=== PATIENT | male | born 1960 | race Caucasian/White ===

== ENCOUNTER 2017-04-28 21:49 | Emergency (ER) | payer SELFPAY ==
[2017-04-28] MEDS ORDERED: DUONEB *Not for PRN Use IH ONE (22:13)
[2017-04-28 22:42] LABS: Basophils % (Auto) 0.7 % (0.0-1.8); Eosinophils % (Auto) 1.9 % (0.0-4.3); Hematocrit 37.9 % (35.5-45.6); Mean Corpuscular HGB Conc 34 % (32-34); Mean Corpuscular Hemoglobin 34 pg (28-32); Mean Corpuscular Volume 100 fl (84-94); Red Blood Count 3.79 M/mm3 (3.65-5.03); Red Cell Distribution Width 13.6 % (13.2-15.2); White Blood Count 4.5 K/mm3 (4.5-11.0)
[2017-04-28 22:52] LABS: INR 1.29 (0.87-1.13); Partial Thromboplastin Time 30.9 Sec. (24.2-36.6)
[2017-04-28 22:53] LABS: Anion Gap 18 mmol/L; Blood Urea Nitrogen 14 mg/dL (9-20); Calcium 8.5 mg/dL (8.4-10.2); Carbon Dioxide 24 mmol/L (22-30); Chloride 104.9 mmol/L (98-107); Glucose 195 mg/dL (75-100); Potassium 3.8 mmol/L (3.6-5.0); Sodium 143 mmol/L (137-145)
[2017-04-28 23:09] LABS: Platelet Count 90 K/mm3 (140-440)
[2017-04-29] MEDS ORDERED: BABY ASPIRIN PO ONE (06:49)
--- NOTE | 2017-04-29 06:49 | Emergency Department Report ---
ED Chest Pain HPI - General Chief Complaint: Chest Pain Stated Complaint: CP Time Seen by Provider: 04/29/17 06:41 Source: patient Mode of arrival: Ambulatory Limitations: No Limitations - History of Present Illness Initial Comments: Patient is a 57 past medical history of asthma who presents with chest tightness that occurred yesterday. Patient states that the chest pain is located in the middle of his chest breathing makes it worse and nothing makes it better. Patient states that he's uses inhaler and has been wheezing. The pain is a 5 out 10 as a sharp type pain. It is intermittent he states that he may have had a history of SC? However reviewing his old records he was seen here last year and he denied having any history of heart attack. Patient does not take a daily aspirin or any Plavix. 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 Patient's stress test last year was negative. Patient denies having any nausea or vomiting. Severity scale (0 -10): 3 - Related Data Previous Rx's Medication Instructions Recorded Last Taken Type ALBUTEROL Inhaler [ProAir HFA 2 puff IH QID PRN #1 inhalation 04/29/17 Unknown Rx Inhaler] predniSONE [Deltasone] 20 mg PO BID #10 tablet 04/29/17 Unknown Rx Allergies Allergy/AdvReac Type Severity Reaction Status Date / Time No Known Allergies Allergy Verified 04/28/17 22:06 Heart Score - HEART Score History: Slightly suspicious EKG: Non-specific Age: 45-65 Risk factors: 1-2 risk factors Troponin: < normal limit HEART Score: 3 ED Review of Systems ROS: Stated complaint: CP Other details as noted in HPI Constitutional: denies: chills, fever Eyes: denies: eye pain, eye discharge, vision change ENT: denies: ear pain, throat pain Respiratory: shortness of breath. denies: cough, wheezing Cardiovascular: chest pain. denies: palpitations Endocrine: no symptoms reported Gastrointestinal: denies: abdominal pain, nausea, diarrhea Genitourinary: denies: urgency, dysuria Musculoskeletal: denies: back pain, joint swelling, arthralgia Skin: denies: rash, lesions Neurological: denies: headache, weakness, paresthesias Psychiatric: denies: anxiety, depression Hematological/Lymphatic: denies: easy bleeding, easy bruising ED Past Medical Hx - Past Medical History Previous Medical History?: Yes Hx Heart Attack/AMI: Yes - Surgical History Past Surgical History?: No - Social History Smoking Status: Never Smoker Substance Use Type: Alcohol - Medications Home Medications: Home Medications Medication Instructions Recorded Confirmed Last Taken Type ALBUTEROL Inhaler [ProAir HFA 2 puff IH QID PRN #1 inhalation 04/29/17 Unknown Rx Inhaler] predniSONE [Deltasone] 20 mg PO BID #10 tablet 04/29/17 Unknown Rx ED Physical Exam - General Limitations: No Limitations General appearance: alert, in no apparent distress - Head Head exam: Present: atraumatic, normocephalic - Eye Eye exam: Present: normal appearance - ENT ENT exam: Present: mucous membranes moist - Neck Neck exam: Present: normal inspection - Respiratory Respiratory exam: Present: wheezes. Absent: respiratory distress - Cardiovascular Cardiovascular Exam: Present: regular rate, normal rhythm. Absent: systolic murmur, diastolic murmur, rubs, gallop - GI/Abdominal GI/Abdominal exam: Present: soft, normal bowel sounds - Rectal Rectal exam: Present: deferred - Extremities Exam Extremities exam: Present: normal inspection - Back Exam Back exam: Present: normal inspection - Neurological Exam Neurological exam: Present: alert, oriented X3 - Psychiatric Psychiatric exam: Present: normal affect, normal mood - Skin Skin exam: Present: warm, dry, intact, normal color. Absent: rash ED Course Vital Signs 04/28/17 04/28/17 04/28/17 21:59 22:00 22:06 Temperature 98.1 F 98.1 F Pulse Rate 95 H 94 H 94 H Pulse Rate [ Anterior] Respiratory 20 20 Rate Respiratory Rate [Anterior] Blood Pressure 145/85 145/85 Blood Pressure 145/85 [Right] O2 Sat by Pulse 97 96 96 Oximetry 04/28/17 04/28/17 04/29/17 22:50 23:05 06:12 Temperature Pulse Rate Pulse Rate [ 78 80 Anterior] Respiratory 18 Rate Respiratory 22 23 Rate [Anterior] Blood Pressure Blood Pressure [Right] O2 Sat by Pulse 99 Oximetry 04/29/17 04/29/17 04/29/17 06:37 06:45 07:00 Temperature Pulse Rate 76 70 Pulse Rate [ Anterior] Respiratory 17 17 17 Rate Respiratory Rate [Anterior] Blood Pressure 163/91 155/91 Blood Pressure [Right] O2 Sat by Pulse 100 99 Oximetry 04/29/17 04/29/17 04/29/17 07:15 07:30 07:45 Temperature Pulse Rate 72 74 77 Pulse Rate [ Anterior] Respiratory 17 16 16 Rate Respiratory Rate [Anterior] Blood Pressure 155/91 143/88 143/88 Blood Pressure [Right] O2 Sat by Pulse 99 100 99 Oximetry 04/29/17 04/29/17 04/29/17 08:00 08:15 08:22 Temperature 98.4 F Pulse Rate 77 76 Pulse Rate [ Anterior] Respiratory 16 17 Rate Respiratory Rate [Anterior] Blood Pressure 131/66 131/66 Blood Pressure [Right] O2 Sat by Pulse 99 99 Oximetry - Reevaluation(s) Reevaluation #1: 04/29/17 09:15 Patient has had 3 negative troponins and unremarkable EKG patient will be sent home. LOIDA score - Loida Score Age > 65: (0) No Aspirin use within the Past 7 Days: (0) No 3 or more CAD Risk Factors: (0) No 2 or more Angina events in past 24 hrs: (0) No Known CAD with more than 50% Stenosis: (0) No Elevated Cardiac Markers: (0) No ST Deviation Greater than 0.5mm: (0) No LOIDA Score: 0 ED Medical Decision Making - Lab Data Result diagrams: 04/28/17 22:17 04/28/17 22:17 Lab Results 04/28/17 04/28/17 04/28/17 Range/Units 22:17 22:17 22:17 WBC 4.5 (4.5-11.0) K/mm3 RBC 3.79 (3.65-5.03) M/mm3 Hgb 13.0 (11.8-15.2) gm/dl Hct 37.9 (35.5-45.6) % MCV 100 H (84-94) fl MCH 34 H (28-32) pg MCHC 34 (32-34) % RDW 13.6 (13.2-15.2) % Plt Count 90 L (140-440) K/mm3 Lymph % (Auto) 38.1 H (13.4-35.0) % Rhea % (Auto) 7.6 H (0.0-7.3) % Eos % (Auto) 1.9 (0.0-4.3) % Baso % (Auto) 0.7 (0.0-1.8) % Lymph # 1.7 (1.2-5.4) K/mm3 Rhea # 0.3 (0.0-0.8) K/mm3 Eos # 0.1 (0.0-0.4) K/mm3 Baso # 0.0 (0.0-0.1) K/mm3 Seg Neutrophils % 51.7 (40.0-70.0) % Seg Neutrophils # 2.3 (1.8-7.7) K/mm3 PT 16.8 H (12.2-14.9) Sec. INR 1.29 H (0.87-1.13) APTT 30.9 (24.2-36.6) Sec. Sodium 143 (137-145) mmol/L Potassium 3.8 (3.6-5.0) mmol/L Chloride 104.9 (98-107) mmol/L Carbon Dioxide 24 (22-30) mmol/L Anion Gap 18 mmol/L BUN 14 (9-20) mg/dL Creatinine 0.8 (0.8-1.5) mg/dL Estimated GFR > 60 ml/min BUN/Creatinine Ratio 17.50 % Glucose 195 H (75-100) mg/dL Calcium 8.5 (8.4-10.2) mg/dL Troponin T < 0.010 (0.00-0.029) ng/mL 04/29/17 04/29/17 Range/Units 01:03 04:39 WBC (4.5-11.0) K/mm3 RBC (3.65-5.03) M/mm3 Hgb (11.8-15.2) gm/dl Hct (35.5-45.6) % MCV (84-94) fl MCH (28-32) pg MCHC (32-34) % RDW (13.2-15.2) % Plt Count (140-440) K/mm3 Lymph % (Auto) (13.4-35.0) % Rhea % (Auto) (0.0-7.3) % Eos % (Auto) (0.0-4.3) % Baso % (Auto) (0.0-1.8) % Lymph # (1.2-5.4) K/mm3 Rhea # (0.0-0.8) K/mm3 Eos # (0.0-0.4) K/mm3 Baso # (0.0-0.1) K/mm3 Seg Neutrophils % (40.0-70.0) % Seg Neutrophils # (1.8-7.7) K/mm3 PT (12.2-14.9) Sec. INR (0.87-1.13) APTT (24.2-36.6) Sec. Sodium (137-145) mmol/L Potassium (3.6-5.0) mmol/L Chloride (98-107) mmol/L Carbon Dioxide (22-30) mmol/L Anion Gap mmol/L BUN (9-20) mg/dL Creatinine (0.8-1.5) mg/dL Estimated GFR ml/min BUN/Creatinine Ratio % Glucose (75-100) mg/dL Calcium (8.4-10.2) mg/dL Troponin T < 0.010 < 0.010 (0.00-0.029) ng/mL - EKG Data -: EKG Interpreted by Me - EKG Data 04/29/17 09:25 EKG shows sinus rhythm normal axis posterior infarct and minimal. Compared with prior EKG. No new changes or ST segment elevation. - Radiology Data Radiology results: report reviewed, image reviewed Chest x-ray: Shows no cardiopulmonary disease - Medical Decision Making Chief medical diagnosis: Asthma exacerbation Differential medical diagnosis: Pneumonia, non-STEMI, costochondritis I will get CBC, CMP, EKG, troponin, chest x-ray, oral pain medication. Patient has 3 negative troponins and chest x-rays unremarkable I will send the patient home and have the patient follow-up with a PCP and I will send patient with prednisone and albuterol inhaler. Additional verbal discharge instructions were given. Patient agrees with plan for discharge. Critical care attestation.: If time is entered above; I have spent that time in minutes in the direct care of this critically ill patient, excluding procedure time. ED Disposition Clinical Impression: Shortness of breath, Asthma exacerbation Chest pain Qualifiers: Chest pain type: other chest pain Qualified Code(s): R07.89 - Other chest pain Disposition: TO HOME OR SELFCARE Is pt being admited?: No Does the pt Need Aspirin: No Condition: Stable Instructions: Chest Pain (ED), Asthma (ED) Prescriptions: ALBUTEROL Inhaler [ProAir HFA Inhaler] 2 puff IH QID PRN #1 inhalation PRN Reason: Shortness Of Breath predniSONE [Deltasone] 20 mg PO BID #10 tablet Referrals: PRIMARY CARE, [Primary Care Provider] - 3-5 Days VASU DAVIDSON MD [Staff Physician] - 3-5 Days
--- NOTE | 2017-04-29 07:48 | XRay Report ---
ROUTINE CHEST, TWO VIEWS: HISTORY: Cough, chest pain. The trachea, heart, mediastinal contour, lung nolasco and bony thorax are unremarkable. IMPRESSION: Unremarkable chest x-ray.
[2017-04-29 08:22] VITALS: BP 131/66
[2017-04-29] MEDS ORDERED: DELTASONE PO ONE (09:32)
== END 2017-04-29 09:53 | disposition home or self-care (01) ==
LOC: ED 21:49
DX: J45.901 Unspecified asthma with (acute) exacerbation (principal); R07.89 Other chest pain; I25.2 Old myocardial infarction
CPT/HCPCS: 36415; 71020; 80048; 84484; 85025; 85610; 85730; 93005; 93010; 94640; 99284; J7512

== ENCOUNTER 2019-08-10 07:57 | Emergency (ER) | payer SELFPAY ==
[2019-08-10] MEDS ORDERED: IPRATROPIUM/ALBUTEROL SULFATE 3 ML AMPUL.NEB IH ONE ×2 (08:16→08:17)
--- NOTE | 2019-08-10 09:14 | XRay Report ---
CHEST 2 VIEWS INDICATION / CLINICAL INFORMATION: SOB, cough, wheeze, hx asthma. COMPARISON: 08/11/2018 FINDINGS: SUPPORT DEVICES: None. HEART / MEDIASTINUM: No significant abnormality. LUNGS / PLEURA: No significant pulmonary or pleural abnormality. No pneumothorax. ADDITIONAL FINDINGS: No significant additional findings. IMPRESSION: 1. No acute findings. Signer Name: Jeevan Interiano MD Signed: 08/10/2019 9:09 AM Workstation Name: [id number]
[2019-08-10] MEDS ORDERED: DEXAMETHASONE 4 MG TAB PO ONE (10:53)
[2019-08-10] MEDS ORDERED: ALBUTEROL 2.5 MG/3 ML NEBU IH ONE ×2 (10:53→12:10)
--- NOTE | 2019-08-10 10:55 | Emergency Department Report ---
Minor Respiratory - HPI Chief Complaint: Adult Asthma Stated Complaint: ASTHMA Time Seen by Provider: 08/10/19 10:20 Duration: 1 Day Minor Respiratory: Yes Able to Tolerate Fluids, Yes Cough, Yes Shortness of Breath, No Rhinorrhea, No Sore Throat, No Ear Pain, No Sick Contacts, No Hemoptysis, No Chest Pain, No Fever Other History: 59-year-old male presents to the emergency room compla ining of asthma and cough since yesterday. Patient admits to wheezing and has ran out of his medication. Patient also admits to cough denies any fever or chills abdominal pain shortness of breath chest pain or chest tightness. Patient does not smoke cigarettes. ED Review of Systems ROS: Stated complaint: ASTHMA Other details as noted in HPI Comment: All other systems reviewed and negative ED Past Medical Hx - Past Medical History Previous Medical History?: Yes Hx Hypertension: Yes (pt does not want to take bp meds) Hx Heart Attack/AMI: Yes Hx Congestive Heart Failure: No Hx Diabetes: No Hx Deep Vein Thrombosis: No Hx Kidney Stones: Yes Hx Asthma: Yes Hx COPD: No - Surgical History Past Surgical History?: No Hx Coronary Stent: No Hx Pacemaker: No Hx Internal Defibrillator: No - Social History Smoking Status: Never Smoker - Medications Home Medications: Home Medications Medication Instructions Recorded Confirmed Last Taken Type Multivitamin [Multiple Vitamins] 1 each PO DAILY 08/11/18 08/11/18 Unknown History Budesonide [Pulmicort Respules] 0.5 mg IH Q12HRT #60 nebu 08/15/18 Unknown Rx Nebulizer [Aeroneb Go Nebulizer] 1 each MC BID #1 each 08/15/18 Unknown Rx amLODIPine 10 mg PO DAILY #30 tab 08/15/18 Unknown Rx ALBUTEROL NEB's [Proventil 0.083% 2.5 mg IH Q4HRT PRN #60 nebu 08/10/19 Unknown Rx NEBS] Prednisone [predniSONE 10 mg 10 mg PO .TAPER #1 tab.ds.pk 08/10/19 Unknown Rx (6-Day Pack, 21 Tabs)] Minor Respiratory Exam - Exam General: Vital signs noted. No distress. Alert and acting appropriately. HEENT: Yes Moist Mucous Membranes, No Pharyngeal Erythema, No Pharyngeal Exudates, No Rhinorrhea, No Conjuctival Injection, No Frontal Tenderness, No Maxillary Tenderness Neck: Yes Supple, No Adenopathy Lungs: Yes Wheezes, Yes Ronchi, Yes Cough, No Labored Respirations, No Retractions, No Use of Accessory Muscles, No Other Abnormal Lung Sounds Neurologic: Alert and oriented, no deficits. Musculoskeletal: Unremarkable. ED Course Vital Signs 08/10/19 08:18 Temperature 97.9 F Pulse Rate 81 Respiratory 24 Rate Blood Pressure 155/93 [Right] O2 Sat by Pulse 93 Oximetry ED Medical Decision Making - Radiology Data Radiology results: report reviewed Patient: GLADYS ROMAN MR#: [id number] : 1960 Acct:[id number] Age/Sex: 59 / M ADM Date: 08/10/19 Loc: ED Attending Dr: Ordering Physician: TOLU PALOMINO MD Date of Service: 08/10/19 Procedure(s): XR chest routine 2V Accession Number(s): [id number] cc: ED MD GEORGETTE Fluoro Time In Minutes: CHEST 2 VIEWS INDICATION / CLINICAL INFORMATION: SOB, cough, wheeze, hx asthma. COMPARISON: 08/11/2018 FINDINGS: SUPPORT DEVICES: None. HEART / MEDIASTINUM: No significant abnormality. LUNGS / PLEURA: No significant pulmonary or pleural abnormality. No pneumothorax. ADDITIONAL FINDINGS: No significant additional findings. IMPRESSION: 1. No acute findings. Signer Name: Jeevan Interiano MD Signed: 08/10/2019 9:09 AM Workstation Name: [id number] Transcribed By: MEDINA Dictated By: Jeevan Interiano MD Electronically Authenticated By: Jeevan Interiano MD Signed Date/Time: 08/10/19908 DD/ 7 TD/TT: - Medical Decision Making 59-year-old male presents to the emergency room complaining of asthma and cough since yesterday. Patient admits to wheezing and has ran out of his medication. Patient also admits to cough denies any fever or chills abdominal pain shortness of breath chest pain or chest tightness. Patient does not smoke cigarettes. Critical care attestation.: If time is entered above; I have spent that time in minutes in the direct care of this critically ill patient, excluding procedure time. ED Disposition Clinical Impression: Asthma with acute exacerbation Disposition: DC-01 TO HOME OR SELFCARE Is pt being admited?: No Does the pt Need Aspirin: No Condition: Stable Instructions: Asthma (ED) Prescriptions: Prednisone [predniSONE 10 mg (6-Day Pack, 21 Tabs)] 10 mg PO .TAPER #1 tab.ds.pk ALBUTEROL NEB's [Proventil 0.083% NEBS] 2.5 mg IH Q4HRT PRN #60 nebu PRN Reason: Shortness Of Breath Referrals: PRIMARY CARE, [Primary Care Provider] - 3-5 Days GRAY ALARCON MD [Staff Physician] - 3-5 Days AYALA MILLAN MD [Staff Physician] - 3-5 Days
[2019-08-10] MEDS ORDERED: IPRATROPIUM 0.02% NEBU 2.5 ML IH ONE (12:10)
[2019-08-10 13:19] VITALS: BP 164/84
== END 2019-08-10 13:17 | disposition home or self-care (01) ==
LOC: ED 07:57
DX: J45.901 Unspecified asthma with (acute) exacerbation (principal); I10 Essential (primary) hypertension; I25.2 Old myocardial infarction; Z87.442 Personal history of urinary calculi; Z79.899 Other long term (current) drug therapy
CPT/HCPCS: 71046; 94640; 99284; J8540; 94644

== ENCOUNTER 2020-08-18 03:54 | Inpatient (IN) | payer OTHER ==
[2020-08-18] MEDS ORDERED: ALBUTEROL 2.5 MG/3 ML NEBU IH ONE ×2 (03:55→04:06)
[2020-08-18] MEDS ORDERED: IPRATROPIUM 0.02% NEBU 2.5 ML IH ONE ×2 (03:55→04:06)
[2020-08-18] MEDS ORDERED: MAGNESIUM SULFATE 2 GM/50 ML BAG IV ONE (03:58)
--- NOTE | 2020-08-18 04:00 | Emergency Department Report ---
ED Asthma HPI - General Chief Complaint: Dyspnea/Respdistress Stated Complaint: ASTHMA PUI?: No Time Seen by Provider: 08/18/20 03:57 Source: patient, EMS Mode of arrival: Stretcher Limitations: No Limitations - History of Present Illness Initial Comments: Patient is a 60-year-old male that presents emergency room with complaints of shortness of breath and asthmatic sounds. Patient states that he ran out of his meds 2 days ago. Patient says been going on for 2 days. Patient denies symptoms worsen. Patient states he cannot catch his breath. Patient denies chest pain. Patient denies fever and chills. Patient denies productive cough. Patient denies recent contact with Covid. Patient states shortness breath better with rest and worse with exertion. Patient denies recent travel. Patient denies recent international travel. Patient denies exposure to the novel coronavirus. Patient denies sick contacts. Patient denies fever and chills. Patient denies cough. Patient denies diarrhea. Patient denies coming in contact with anybody with symptoms of the novel coronavirus. Patient brought in by EMS. EMS gave the patient Solu-Medrol 125 IM and 10 of albuterol. MD Complaint: "asthma attack", shortness of breath -: Sudden Asthma History: childhood onset Severity: severe Context: ran out of meds Associated Symptoms: dry cough. denies: productive cough, fever, chest pain, hemoptysis, leg edema, syncope Treatments Prior to Arrival: inhaled bronchodilator, IV steroid - Related Data Current Asthma Therapy: inhaled bronchodilator Home Medications Medication Instructions Recorded Confirmed Last Taken Multivitamin [Multiple Vitamins] 1 each PO DAILY 08/11/18 08/11/18 Unknown Previous Rx's Medication Instructions Recorded Last Taken Type Budesonide [Pulmicort Respules] 0.5 mg IH Q12HRT #60 nebu 08/15/18 Unknown Rx Nebulizer [Aeroneb Go Nebulizer] 1 each MC BID #1 each 08/15/18 Unknown Rx amLODIPine 10 mg PO DAILY #30 tab 08/15/18 Unknown Rx ALBUTEROL NEB's [Proventil 0.083% 2.5 mg IH Q4HRT PRN #60 nebu 08/10/19 Unknown Rx NEBS] Prednisone [predniSONE 10 mg 10 mg PO .TAPER #1 tab.ds.pk 08/10/19 Unknown Rx (6-Day Pack, 21 Tabs)] Allergies Allergy/AdvReac Type Severity Reaction Status Date / Time No Known Allergies Allergy Verified 04/28/17 22:06 ED Review of Systems ROS: Stated complaint: ASTHMA Other details as noted in HPI Constitutional: denies: chills, fever Eyes: denies: eye pain, eye discharge, vision change ENT: denies: ear pain, throat pain Respiratory: denies: cough, shortness of breath, wheezing Cardiovascular: denies: chest pain, palpitations Endocrine: no symptoms reported Gastrointestinal: denies: abdominal pain, nausea, diarrhea Genitourinary: denies: urgency, dysuria Musculoskeletal: denies: back pain, joint swelling, arthralgia Skin: denies: rash, lesions Neurological: denies: headache, weakness, paresthesias Psychiatric: denies: anxiety, depression Hematological/Lymphatic: denies: easy bleeding, easy bruising ED Past Medical Hx - Past Medical History Previous Medical History?: Yes Hx Hypertension: Yes (pt does not want to take bp meds) Hx Heart Attack/AMI: Yes Hx Congestive Heart Failure: No Hx Diabetes: No Hx Deep Vein Thrombosis: No Hx Kidney Stones: Yes Hx Asthma: Yes Hx COPD: No - Surgical History Past Surgical History?: No Hx Coronary Stent: No Hx Pacemaker: No Hx Internal Defibrillator: No - Family History Family history: no significant - Social History Smoking Status: Never Smoker Substance Use Type: None - Medications Home Medications: Home Medications Medication Instructions Recorded Confirmed Last Taken Type Multivitamin [Multiple Vitamins] 1 each PO DAILY 08/11/18 08/11/18 Unknown History Budesonide [Pulmicort Respules] 0.5 mg IH Q12HRT #60 nebu 08/15/18 Unknown Rx Nebulizer [Aeroneb Go Nebulizer] 1 each MC BID #1 each 08/15/18 Unknown Rx amLODIPine 10 mg PO DAILY #30 tab 08/15/18 Unknown Rx ALBUTEROL NEB's [Proventil 0.083% 2.5 mg IH Q4HRT PRN #60 nebu 08/10/19 Unknown Rx NEBS] Prednisone [predniSONE 10 mg 10 mg PO .TAPER #1 tab.ds.pk 08/10/19 Unknown Rx (6-Day Pack, 21 Tabs)] ED Physical Exam - General Limitations: No Limitations General appearance: alert, in no apparent distress - Head Head exam: Present: atraumatic, normocephalic - Eye Eye exam: Present: normal appearance - ENT ENT exam: Present: mucous membranes moist - Neck Neck exam: Present: normal inspection - Respiratory Respiratory exam: Present: normal lung sounds bilaterally. Absent: respiratory distress - Cardiovascular Cardiovascular Exam: Present: regular rate, normal rhythm. Absent: systolic murmur, diastolic murmur, rubs, gallop - GI/Abdominal GI/Abdominal exam: Present: soft, normal bowel sounds - Rectal Rectal exam: Present: deferred - Extremities Exam Extremities exam: Present: normal inspection - Back Exam Back exam: Present: normal inspection - Neurological Exam Neurological exam: Present: alert, oriented X3 - Psychiatric Psychiatric exam: Present: normal affect, normal mood - Skin Skin exam: Present: warm, dry, intact, normal color. Absent: rash ED Course Vital Signs 08/18/20 08/18/20 04:08 05:11 Pulse Rate 102 H Pulse Rate [ 98 H Bilateral] Respiratory 15 Rate Respiratory 14 Rate [Bilateral ] Blood Pressure 152/89 [Left] O2 Sat by Pulse 96 Oximetry - Reevaluation(s) Reevaluation #1: Patient's work to breathe is improving. Patient still wheezing. 08/18/20 04:58 Reevaluation #2: Patient states he is feeling a little bit better. I discussed all results with patient. I discussed plan of care with patient. Patient agrees with plan of care and admission. Patient to be admitted to the hospitalist service. 08/18/20 05:58 - Consultations Consultation #1: Hospitalist consulted for admission. Hospitalist to admit patient. 08/18/20 05:58 ED Medical Decision Making - Lab Data Result diagrams: 08/18/20 04:02 08/18/20 04:02 - Radiology Data Radiology results: report reviewed CHEST 1 VIEW INDICATION / CLINICAL INFORMATION: Dyspnea. COMPARISON: 08/10/2019 FINDINGS: SUPPORT DEVICES: None. HEART / MEDIASTINUM: No significant abnormality. LUNGS / PLEURA: No significant pulmonary or pleural abnormality. No pneumothorax. ADDITIONAL FINDINGS: No significant additional findings. IMPRESSION: 1. No acute findings. No interval change. - Medical Decision Making Patient is a 60-year-old male that presents emergency room with complaints of shortness of breath and difficulty breathing. Patient has medication. Patient's presents emergency room status asthmaticus. Patient received al buterol and Solu-Medrol. Patient received mag and DuoNeb. Patient's wheezing proved slightly. Patient continued to wheeze with the work to breathe increase. Patient ordered as needed. Patient labs are essentially unremarkable. Patient's chest x-ray is negative for acute finding. Patient is in the hospital service for further evaluation treatment. - Differential Diagnosis Asthmatic exacerbation. Status asthmaticus, pneumonia, Covid, SOB Critical Care Time: Yes Critical care time in (mins) excluding proc time.: 35 Critical care attestation.: If time is entered above; I have spent that time in minutes in the direct care of this critically ill patient, excluding procedure time. Critical Care Time: 35 minutes ED Disposition Clinical Impression: SOB (shortness of breath) Status asthmaticus Qualifiers: Asthma severity: severe Asthma persistence: persistent Qualified Code(s): J45.52 - Severe persistent asthma with status asthmaticus Disposition: DC-09 OP ADMIT IP TO THIS HOSP Is pt being admited?: Yes Does the pt Need Aspirin: No Condition: Critical Time of Disposition: 05:58
[2020-08-18 04:47] LABS: Basophils % (Auto) 0.6 % (0.0-1.8); Eosinophils # (Auto) 0.3 K/mm3 (0.0-0.4); Eosinophils % (Auto) 7.1 % (0.0-4.3); Hematocrit 41.1 % (35.5-45.6); Hemoglobin 14.3 gm/dl (11.8-15.2); Lymphocytes # (Auto) 1.9 K/mm3 (1.2-5.4); Lymphocytes % (Auto) 48.1 % (13.4-35.0); Mean Corpuscular HGB Conc 35 % (32-34); Mean Corpuscular Volume 98 fl (84-94); Monocytes # (Auto) 0.3 K/mm3 (0.0-0.8); Monocytes % (Auto) 7.7 % (0.0-7.3); Platelet Count 171 K/mm3 (140-440); Red Blood Count 4.19 M/mm3 (3.65-5.03); Red Cell Distribution Width 14.9 % (13.2-15.2)
--- NOTE | 2020-08-18 05:16 | XRay Report ---
CHEST 1 VIEW INDICATION / CLINICAL INFORMATION: Dyspnea. COMPARISON: 08/10/2019 FINDINGS: SUPPORT DEVICES: None. HEART / MEDIASTINUM: No significant abnormality. LUNGS / PLEURA: No significant pulmonary or pleural abnormality. No pneumothorax. ADDITIONAL FINDINGS: No significant additional findings. IMPRESSION: 1. No acute findings. No interval change. Signer Name: Eliana Haddad MD Signed: 08/18/2020 5:12 AM Workstation Name: [id number]
[2020-08-18 05:20] LABS: Blood Urea Nitrogen TNR mg/dL (9-20)
[2020-08-18 05:21] LABS: BUN/Creatinine Ratio TNR
[2020-08-18 05:22] LABS: Alanine Aminotransferase TNR units/L (7-56); Calcium TNR mg/dL (8.4-10.2)
[2020-08-18 05:26] LABS: Albumin TNR g/dL (3.9-5); Hemolysis Index TNR
[2020-08-18 06:16] LABS: Alanine Aminotransferase 113 units/L (7-56); Albumin 2.9 g/dL (3.9-5); BUN/Creatinine Ratio 18; Blood Urea Nitrogen 18 mg/dL (9-20); Calcium 8.3 mg/dL (8.4-10.2); Hemolysis Index 6
--- NOTE | 2020-08-18 06:26 | History and Physical Report ---
History of Present Illness Date of examination: 08/18/20 Date of admission: 08/18/20 Chief complaint: asthma exacerbation History of present illness: This is a 60-year-old male seen in ED. He came to emergency room with complaints of shortness of breath and asthmatic sounds. He reports a past medical history of asthma, hypertension, liver cancer and diabetes. Patient said he has asthma extubation because he ran out of his medicine for 2 days. On assessment, josé miguel martínze has wheezing but he 2.3 he is better since he received a treatment. Patient denies chest pain fever or nausea and vomiting. Patient denies recent contact with Covid. Patient states shortness breath better with rest and worse with exertion. ED work-up shows WBC 4.0, hemoglobin 14.3 and platelet 171 Sodium 141, potassium 3.9, serum glucose 175, lactic 2.20, liver enzymes elevated Checks x-ray done showed no acute finding Past History Past Medical History: cancer, diabetes, hypertension, liver disease, other (History of asthma) Past Surgical History: No surgical history Social history: alcohol abuse (Patient said he drinks 2 bottles of beer daily on average), other (Patient said he lives with his girlfriend). denies: smoking, prescription drug abuse, IV drug use Family history: hypertension Medications and Allergies Allergies Allergy/AdvReac Type Severity Reaction Status Date / Time No Known Allergies Allergy Verified 04/28/17 22:06 Home Medications Medication Instructions Recorded Confirmed Last Taken Type Multivitamin [Multiple Vitamins] 1 each PO DAILY 08/11/18 08/11/18 Unknown History Budesonide [Pulmicort Respules] 0.5 mg IH Q12HRT #60 nebu 08/15/18 Unknown Rx Nebulizer [Aeroneb Go Nebulizer] 1 each MC BID #1 each 08/15/18 Unknown Rx amLODIPine 10 mg PO DAILY #30 tab 08/15/18 Unknown Rx ALBUTEROL NEB's [Proventil 0.083% 2.5 mg IH Q4HRT PRN #60 nebu 08/10/19 Unknown Rx NEBS] Prednisone [predniSONE 10 mg 10 mg PO .TAPER #1 tab.ds.pk 08/10/19 Unknown Rx (6-Day Pack, 21 Tabs)] Review of Systems Constitutional: no anorexia Ears, nose, mouth and throat: no epistaxis Cardiovascular: high blood pressure Respiratory: shortness of breath, wheezing Gastrointestinal: no abdominal pain Genitourinary Male: no genital sores Rectal: no pain Musculoskeletal: no neck stiffness Integumentary: no rash Neurological: no paralysis Psychiatric: anxiety Endocrine: no excessive sweating Hematologic/Lymphatic: no easy bruising Allergic/Immunologic: no urticaria Exam - Constitutional Vitals: Temp Pulse Resp BP Pulse Ox 103 H 15 155/93 94 08/18/20 06:06 08/18/20 06:06 08/18/20 06:06 08/18/20 06:06 General appearance: Present: mild distress - EENT Eyes: Present: PERRL ENT: hearing intact, clear oral mucosa - Neck Neck: Present: supple, normal ROM - Respiratory Respiratory effort: normal, other (Shortness of breath and wheezing) Respiratory: bilateral: CTA - Cardiovascular Heart rate: 103 Heart Sounds: Present: S1 & S2. Absent: rub, click - Extremities Extremities: pulses symmetrical, No edema Peripheral Pulses: within normal limits - Abdominal General gastrointestinal: Present: soft, non-tender, non-distended, normal bowel sounds Male genitourinary: Present: normal - Integumentary Integumentary: Present: clear, warm, dry - Musculoskeletal Musculoskeletal: gait normal, strength equal bilaterally - Psychiatric Psychiatric: appropriate mood/affect, intact judgment & insight - Neurologic Neurologic: CNII-XII intact, moves all extremities - Allied Health Allied health notes reviewed: nursing Results - Labs CBC & Chem 7: 08/18/20 04:02 08/18/20 05:32 Labs: Abnormal lab results 08/18/20 08/18/20 Range/Units 04:02 05:32 WBC 4.0 L (4.5-11.0) K/mm3 MCV 98 H (84-94) fl MCH 34 H (28-32) pg MCHC 35 H (32-34) % Lymph % (Auto) 48.1 H (13.4-35.0) % [place] % (Auto) 7.7 H (0.0-7.3) % Eos % (Auto) 7.1 H (0.0-4.3) % Seg Neutrophils % 36.5 L (40.0-70.0) % Seg Neutrophils # 1.5 L (1.8-7.7) K/mm3 Chloride 107.7 H (98-107) mmol/L Glucose 175 H (75-100) mg/dL Calcium 8.3 L (8.4-10.2) mg/dL Total Bilirubin 2.00 H (0.1-1.2) mg/dL AST 153 H (5-40) units/L ALT 113 H (7-56) units/L Alkaline Phosphatase 183 H (35-129) units/L Albumin 2.9 L (3.9-5) g/dL Assessment and Plan - Patient Problems (1) Asthma with acute exacerbation Current Visit: No Status: Acute Plan to address problem: Solu-Medrol and bronchodilator given in ED Continue systemic steroid Monitor oxygen saturation keep patient sats greater than 92% Chest x-ray is done no acute findings Patient out of his medicine x2 days-discussed medication compliance Empiric antibiotic with azithromycin (2) SOB (shortness of breath) Current Visit: Yes Status: Acute Plan to address problem: SOB -secondary to asthma exacerbation Continue bronchodilator, systemic steroid, and oxygen supplement Patient seen in the ED noted wheezing but patient said he is better than he was when he came. (3) Essential (primary) hypertension Current Visit: Yes Status: Acute Plan to address problem: Monitor blood pressure Resume home antihypertensive Will adjust blood pressure medicine if needed (4) Abnormal liver enzymes Current Visit: No Status: Acute Plan to address problem: Questionable cause, likely 2/2 to alcohol use Patient reported history of liver cancer Patient has abnormal liver enzymes Monitor liver enzymes-check acute hepatitis panel Supportive care (5) Alcohol abuse Current Visit: Yes Status: Acute Plan to address problem: Discuss alcohol use cessation Monitor patient for withdrawal We will start alcohol withdrawal protocol if needed (6) Elevated lactic acid level Current Visit: Yes Status: Acute Plan to address problem: Mild -2.2 on admission. Patient temperature and WBC normal Started on empiric antibiotic with azithromycin Blood culture and urinalysis [id number] with results (7) DVT prophylaxis Current Visit: Yes Status: Acute Plan to address problem: SCD will hold anticoagulant due to liver problem
[2020-08-18] MEDS ORDERED: hydrALAZINE 20 MG/1 ML INJ IV PRN (06:28)
[2020-08-18] MEDS ORDERED: ACETAMINOPHEN 325 MG TAB PO PRN (06:49)
[2020-08-18] MEDS ORDERED: SENNOSIDES 8.6 MG TAB PO PRN (06:49)
[2020-08-18] MEDS ORDERED: ONDANSETRON 4 MG/2 ML INJ IV PRN (06:49)
[2020-08-18] MEDS ORDERED: MAGNESIUM HYDROXIDE (MOM) ORAL LIQD UDC PO PRN (07:00)
[2020-08-18] MEDS ORDERED: ALUM-MAG HYDROXIDE-SIMETHICONE 200-200-20MG/5ML ORAL LIQD 30 ML PO PRN (07:00)
[2020-08-18] MEDS ORDERED: METOCLOPRAMIDE 10 MG/2 ML INJ IV PRN (07:00)
[2020-08-18] MEDS: AZITHROMYCIN 500 MG in SODIUM CHLORIDE 0.9% 250ML 250 ML IV SCH (08:11)
[2020-08-18] MEDS ORDERED: SODIUM CHLORIDE 0.9% 1000 ML 1,000 ML IV ONE (08:44)
[2020-08-18] MEDS: amLODIPine 10 MG TAB PO SCH (10:53)
[2020-08-18] MEDS: FAMOTIDINE 20 MG TAB PO SCH ×2 (10:53→22:01)
--- NOTE | 2020-08-18 10:58 | Event Note ---
Date: 08/18/20 Patient seen and examined now off of BiPAP counseling provided to the patient. He verbalized understanding. Will obtain coronavirus testing. Will obtain CT abdomen and pelvis to ensure no other pathology considering lactic acidosis which is rising. Continue steroid treatment await pulmonary evaluation.
[2020-08-18] MEDS: IPRATROPIUM/ALBUTEROL SULFATE 3 ML AMPUL.NEB IH SCH ×3 (11:48→20:43)
--- NOTE | 2020-08-18 12:21 | Cat Scan Report ---
CT abdomen pelvis wo con INDICATION: ABDOMINAL PAIN. TECHNIQUE: All CT scans at this location are performed using the following dose modulation technique: Automated exposure control. CONTRAST: None. COMPARISON: CT abdomen 08/12/2018. CT ABDOMEN: The liver remains cirrhotic in configuration. The previously seen lesion within the later al aspect of the posterior segment of the right hepatic lobe is no longer identified. An area of vagu e low density at the lateral segment of the left hepatic lobe has enlarged and is now a low density m ass measuring 6.1 x 5.7 cm (series 2, image 27). The spleen is enlarged measuring 14.8 cm in the cran iocaudad dimension. The left kidney contains several small nonobstructing stones at the lower pole with the largest measu ring 3 mm. Prominent right-sided hydronephrosis remains extending to the level of a 1.5 cm stone just above the lumbosacral junction. A smaller stones seen superiorly measuring 6 mm. Moderate cortical a trophy has occurred over the interval. The remaining parenchymal organs are unremarkable. Negative for new mass, adenopathy or inflammation. Varices are greatest at the gastrohepatic ligament . A calcified gallstone is present. A fat-containing umbilical hernia is small. CT PELVIS: Negative for distal ureteral stone, pelvic fluid collection or inflammation. The appendix is normal. The prostate gland is small in size, but contains scattered calcification. A 1 mm stone is seen at th e bladder base on the left. IMPRESSION: 1. Cirrhosis with portal hypertension including splenomegaly and varices. 2. Enlarging mass lateral segment left hepatic lobe worrisome for hepatocellular carcinoma. 3. Persistent large stone right ureter with chronic hydronephrosis. Cortical atrophy is moderate over the interval. #4 calcified gallstone. 4. 1 mm bladder stone may represent a recently passed kidney stone. Signer Name: Jerson Diallo MD Signed: 08/18/2020 12:17 PM Workstation Name: [email or web address]
--- NOTE | 2020-08-18 13:54 | Consultation ---
History of Present Illness Consult date: 08/18/20 Requesting physician: TRISTA ARCE Reason for consult: asthma (Acute Exacerbation) History of present illness: [facility] CONSULT NOTE (Full dictation # [id number]) Please see dictated notes for full details Past History Past Medical History: cancer, diabetes, hypertension, liver disease, other (History of asthma) Past Surgical History: No surgical history Social history: alcohol abuse (Patient said he drinks 2 bottles of beer daily on average), other (Patient said he lives with his girlfriend). denies: smoking, prescription drug abuse, IV drug use Family history: hypertension Medications and Allergies Allergies Allergy/AdvReac Type Severity Reaction Status Date / Time No Known Allergies Allergy Verified 04/28/17 22:06 Home Medications Medication Instructions Recorded Confirmed Last Taken Type Multivitamin [Multiple Vitamins] 1 each PO DAILY 08/11/18 08/11/18 Unknown History Budesonide [Pulmicort Respules] 0.5 mg IH Q12HRT #60 nebu 08/15/18 Unknown Rx Nebulizer [Aeroneb Go Nebulizer] 1 each MC BID #1 each 08/15/18 Unknown Rx amLODIPine 10 mg PO DAILY #30 tab 08/15/18 Unknown Rx ALBUTEROL NEB's [Proventil 0.083% 2.5 mg IH Q4HRT PRN #60 nebu 08/10/19 Unknown Rx NEBS] Prednisone [predniSONE 10 mg 10 mg PO .TAPER #1 tab.ds.pk 08/10/19 Unknown Rx (6-Day Pack, 21 Tabs)] Active Meds: Active Medications Acetaminophen (Acetaminophen 325 Mg Tab) 650 mg PO Q4H PRN PRN Reason: Pain MILD(1-3)/Fever >100.5/[place] Al Hydrox/Mg Hydrox/Simethicone (Alum-Mag Hydroxide-Simethicone [phone]/5ml Oral Liqd 30 Ml) 30 ml PO Q4H PRN PRN Reason: Indigestion Albuterol/Ipratropium (Ipratropium/Albuterol Sulfate 3 Ml Ampul.Neb) 1 ampul IH Q6HRT PRAVEENA Last Admin: 08/18/20 11:48 Dose: Not Given Documented by: Amlodipine Besylate (Amlodipine 10 Mg Tab) 10 mg PO QDAY [facility] Last Admin: 08/18/20 10:53 Dose: 10 mg Documented by: Famotidine (Famotidine 20 Mg Tab) 20 mg PO BID PRAVEENA Last Admin: 08/18/20 10:53 Dose: 20 mg Documented by: Hydralazine HCl (Hydralazine 20 Mg/1 Ml Inj) 5 mg IV Q30MIN PRN PRN Reason: HYPERTENSION Azithromycin 500 mg/ Sodium (Chloride) 250 mls @ 250 mls/hr IV Q24H [facility]; Protocol Last Infusion: 08/18/20 09:45 Dose: Infused Documented by: Magnesium Hydroxide (Magnesium Hydroxide (Mom) Oral Liqd Udc) 30 ml PO Q4H PRN PRN Reason: Constipation Methylprednisolone Sodium Succinate (Methylprednisolone Sod Succinate 40 Mg/1 Ml Inj) 60 mg IV Q8HR [facility] Metoclopramide HCl (Metoclopramide 10 Mg/2 Ml Inj) 10 mg IV Q6H PRN PRN Reason: Nausea And Vomiting Ondansetron HCl (Ondansetron 4 Mg/2 Ml Inj) 4 mg IV Q8H PRN PRN Reason: Nausea And Vomiting Senna (Sennosides 8.6 Mg Tab) 8.6 mg PO Q12H PRN PRN Reason: Constipation Sodium Chloride (Sodium Chloride 0.9% 10 Ml Flush Syringe) 10 ml IV BID PRAVEENA Sodium Chloride (Sodium Chloride 0.9% 10 Ml Flush Syringe) 10 ml IV PRN PRN PRN Reason: LINE FLUSH Zolpidem Tartrate (Zolpidem 5 Mg Tab) 5 mg PO QHS PRN PRN Reason: Insomnia Physical Examination Vital signs: Vital Signs Pulse Resp 98 H 14 08/18/20 04:08 08/18/20 04:08 Results - Laboratory Findings CBC and BMP: 08/19/20 05:15 08/19/20 05:15 Abnormal lab findings: Abnormal Labs 08/18/20 08/18/20 08/18/20 04:02 05:32 05:32 WBC 4.0 L MCV 98 H MCH 34 H MCHC 35 H Lymph % (Auto) 48.1 H [place] % (Auto) 7.7 H Eos % (Auto) 7.1 H Seg Neutrophils % 36.5 L Seg Neutrophils # 1.5 L Chloride 107.7 H Glucose 175 H Lactic Acid 2.20 H* Calcium 8.3 L Total Bilirubin 2.00 H AST 153 H ALT 113 H Alkaline Phosphatase 183 H Albumin 2.9 L 08/18/20 08/18/20 06:36 08:41 WBC MCV MCH MCHC Lymph % (Auto) [place] % (Auto) Eos % (Auto) Seg Neutrophils % Seg Neutrophils # Chloride Glucose Lactic Acid 4.00 H* 5.80 H* Calcium Total Bilirubin AST ALT Alkaline Phosphatase Albumin
[2020-08-18] MEDS: methylPREDNISolone Sod Succinate 40 MG/1 ML INJ IV SCH ×2 (16:00→22:01)
[2020-08-18 17:14] LABS: Hepatitis B Surface Antigen Nonreactive (Negative); Hepatitis C Virus Antibody Reactive (NonReactive)
[2020-08-18 17:37] LABS: Bilirubin,Urine NEG (Negative); Blood,Urine SM (Negative); Color,Urine Yellow (Yellow); Protein,Urine <15 mg/dL mg/dL (Negative)
[2020-08-18] MEDS ORDERED: ZOLPIDEM 5 MG TAB PO PRN (22:00)
[2020-08-19] MEDS: IPRATROPIUM/ALBUTEROL SULFATE 3 ML AMPUL.NEB IH SCH ×4 (02:44→21:00)
[2020-08-19] MEDS: methylPREDNISolone Sod Succinate 40 MG/1 ML INJ IV SCH ×3 (05:25→22:18)
[2020-08-19 06:41] LABS: Hematocrit 39.1 % (35.5-45.6); Hemoglobin 13.4 gm/dl (11.8-15.2); Lymphocytes # (Auto) 0.5 K/mm3 (1.2-5.4); Lymphocytes % (Auto) 8.3 % (13.4-35.0); Mean Corpuscular HGB Conc 34 % (32-34); Mean Corpuscular Volume 101 fl (84-94); Monocytes # (Auto) 0.2 K/mm3 (0.0-0.8); Red Blood Count 3.89 M/mm3 (3.65-5.03); Red Cell Distribution Width 14.5 % (13.2-15.2)
[2020-08-19 06:44] LABS: Platelet Count 75 K/mm3 (140-440)
[2020-08-19 06:49] LABS: Alanine Aminotransferase 93 units/L (7-56); Albumin 2.8 g/dL (3.9-5); BUN/Creatinine Ratio 30; Blood Urea Nitrogen 24 mg/dL (9-20); Calcium 8.3 mg/dL (8.4-10.2); Hemolysis Index 7
[2020-08-19] MEDS: FAMOTIDINE 20 MG TAB PO SCH ×2 (09:27→22:18)
[2020-08-19] MEDS: amLODIPine 10 MG TAB PO SCH (09:27)
[2020-08-19] MEDS: AZITHROMYCIN 500 MG in SODIUM CHLORIDE 0.9% 250ML 250 ML IV SCH (10:03)
--- NOTE | 2020-08-19 12:52 | Progress Note ---
Assessment and Plan Assessment and plan: This is a 60-year-old male seen in ED. He came to emergency room with complaints of shortness of breath and asthmatic sounds. He reports a past medical history of asthma, hypertension, liver cancer and diabetes. Patient said he has asthma extubation because he ran out of his medicine for 2 days. On assessment, patient has wheezing but he 2.3 he is better since he received a treatment. Patient denies chest pain fever or nausea and vomiting. Patient denies recent contact with Covid. Patient states shortness breath better with rest and worse with exertion. ED work-up shows WBC 4.0, hemoglobin 14.3 and platelet 171 Sodium 141, potassium 3.9, serum glucose 175, lactic 2.20, liver enzymes elevat ed Checks x-ray done showed no acute finding 08/19: Continue supportive care, awaiting COVID 19 Test. HOME OXYGEN EVALUATION. Social work consult per patient request. If COVID negative and improved re spiration, patient can be discharge in am with prescriptions. (1) Asthma with acute exacerbation Current Visit: No Status: Acute Plan to address problem: Solu-Medrol and bronchodilator given in ED Continue systemic steroid Monitor oxygen saturation keep patient sats greater than 92% Chest x-ray is done no acute findings Patient out of his medicine x2 days-discussed medication compliance Empiric antibiotic with azithromycin (2) SOB (shortness of breath) Current Visit: Yes Status: Acute Plan to address problem: SOB -secondary to asthma exacerbation Continue bronchodilator, systemic steroid, and oxygen supplement Patient seen in the ED noted wheezing but patient said he is better than he was when he came. (3) Essential (primary) hypertension Current Visit: Yes Status: Acute Plan to address problem: Monitor blood pressure Resume home antihypertensive Will adjust blood pressure medicine if needed (4) Abnormal liver enzymes Current Visit: No Status: Acute Plan to address problem: Questionable cause, likely 2/2 to alcohol use Patient reported history of liver cancer Patient has abnormal liver enzymes Monitor liver enzymes-check acute hepatitis panel Supportive care (5) Alcohol abuse Current Visit: Yes Status: Acute Plan to address problem: Discuss alcohol use cessation Monitor patient for withdrawal We will start alcohol withdrawal protocol if needed (6) Elevated lactic acid level Current Visit: Yes Status: Acute Plan to address problem: Mild -2.2 on admission. Patient temperature and WBC normal Started on empiric antibiotic with azithromycin Blood culture and urinalysis [id number] with results (7) DVT prophylaxis Current Visit: Yes Status: Acute Plan to address problem: SCD will hold anticoagulant due to liver problem History Interval history: Patient seen and examined, resting comfortable, still with mild congestion but no worsening distress. Hospitalist Physical - Constitutional Vitals: Temp Pulse Resp BP Pulse Ox 98.3 F 94 H 22 149/91 93 08/19/20 11:45 08/19/20 11:45 08/19/20 11:45 08/19/20 11:45 08/19/20 11:45 General appearance: Present: mild distress - EENT Eyes: Present: PERRL, EOM intact ENT: clear oral mucosa - Neck Neck: Present: supple, normal ROM - Respiratory Respiratory effort: normal Respiratory: bilateral: rhonchi - Cardiovascular Rhythm: regular Heart Sounds: Present: S1 & S2. Absent: systolic murmur, diastolic murmur - Extremities Extremities: no ischemia, pulses intact, No edema, normal temperature, Full ROM Peripheral Pulses: within normal limits - Abdominal General gastrointestinal: soft, non-tender, non-distended, normal bowel sounds - Integumentary Integumentary: Present: warm, dry - Psychiatric Psychiatric: appropriate mood/affect, intact judgment & insight, memory intact - Neurologic Neurologic: CNII-XII intact, moves all extremities - Allied Health Allied health notes reviewed: nursing Results - Labs CBC & Chem 7: 08/19/20 05:15 08/19/20 05:15 Labs: Laboratory Last Values WBC 6.0 K/mm3 (4.5-11.0) 08/19/20 05:15 RBC 3.89 M/mm3 (3.65-5.03) 08/19/20 05:15 Hgb 13.4 gm/dl (11.8-15.2) 08/19/20 05:15 Hct 39.1 % (35.5-45.6) 08/19/20 05:15 MCV 101 fl (84-94) H 08/19/20 05:15 MCH 35 pg (28-32) H 08/19/20 05:15 MCHC 34 % (32-34) 08/19/20 05:15 RDW 14.5 % (13.2-15.2) 08/19/20 05:15 Plt Count 75 K/mm3 (140-440) L 08/19/20 05:15 Lymph % (Auto) 8.3 % (13.4-35.0) L 08/19/20 05:15 [place] % (Auto) 4.0 % (0.0-7.3) 08/19/20 05:15 Eos % (Auto) 0.0 % (0.0-4.3) 08/19/20 05:15 Baso % (Auto) 0.0 % (0.0-1.8) 08/19/20 05:15 Lymph # (Auto) 0.5 K/mm3 (1.2-5.4) L 08/19/20 05:15 [place] # (Auto) 0.2 K/mm3 (0.0-0.8) 08/19/20 05:15 Eos # (Auto) 0.0 K/mm3 (0.0-0.4) 08/19/20 05:15 Baso # (Auto) 0.0 K/mm3 (0.0-0.1) 08/19/20 05:15 Seg Neutrophils % 87.7 % (40.0-70.0) H 08/19/20 05:15 Seg Neutrophils # 5.3 K/mm3 (1.8-7.7) 08/19/20 05:15 Sodium 133 mmol/L (137-145) L D 08/19/20 05:15 Potassium 4.1 mmol/L (3.6-5.0) 08/19/20 05:15 Chloride 103.2 mmol/L (98-107) 08/19/20 05:15 Carbon Dioxide 23 mmol/L (22-30) 08/19/20 05:15 Anion Gap 11 mmol/L 08/19/20 05:15 BUN 24 mg/dL (9-20) H 08/19/20 05:15 Creatinine 0.8 mg/dL (0.8-1.3) 08/19/20 05:15 Estimated GFR > 60 ml/min 08/19/20 05:15 BUN/Creatinine Ratio 30 % 08/19/20 05:15 Glucose 216 mg/dL (75-100) H 08/19/20 05:15 POC Glucose 239 mg/dL (70-105) H 08/19/20 00:03 Hemoglobin A1c 5.5 % (4-6) 08/18/20 07:22 Lactic Acid 5.80 mmol/L (0.7-2.0) H* 08/18/20 08:41 Calcium 8.3 mg/dL (8.4-10.2) L 08/19/20 05:15 Total Bilirubin 2.10 mg/dL (0.1-1.2) H 08/19/20 05:15 AST 100 units/L (5-40) H 08/19/20 05:15 ALT 93 units/L (7-56) H 08/19/20 05:15 Alkaline Phosphatase 160 units/L (35-129) H 08/19/20 05:15 Total Protein 6.5 g/dL (6.3-8.2) 08/19/20 05:15 Albumin 2.8 g/dL (3.9-5) L 08/19/20 05:15 Albumin/Globulin Ratio 0.8 % 08/19/20 05:15 Urine Color Yellow (Yellow) 08/18/20 17:22 Urine Turbidity Clear (Clear) 08/18/20 17:22 Urine pH 6.0 (5.0-7.0) 08/18/20 17:22 Ur Specific [place] 1.023 (1.003-1.030) 08/18/20 17:22 Urine Protein <15 mg/dl mg/dL (Negative) 08/18/20 17:22 Urine Glucose (UA) >=500 mg/dL (Negative) 08/18/20 17:22 Urine Ketones Neg mg/dL (Negative) 08/18/20 17:22 Urine Blood Sm (Negative) 08/18/20 17:22 Urine Nitrite Neg (Negative) 08/18/20 17:22 Urine Bilirubin Neg (Negative) 08/18/20 17:22 Urine Urobilinogen 2.0 mg/dL (<2.0) 08/18/20 17:22 Ur Leukocyte Esterase Sm (Negative) 08/18/20 17:22 Urine WBC (Auto) 39.0 /HPF (0.0-6.0) H 08/18/20 17:22 Urine RBC (Auto) 4.0 /HPF (0.0-6.0) 08/18/20 17:22 U Epithel Cells (Auto) 1.0 /HPF (0-13.0) 08/18/20 17:22 Hepatitis A IgM Ab Non-reactive (NonReactive) 08/18/20 07:22 Hep Bs Antigen Nonreactive (Negative) 08/18/20 07:22 Hep B Core IgM Ab Non-reactive (NonReactive) 08/18/20 07:22 Hepatitis C Antibody Reactive (NonReactive) A 08/18/20 07:22 Microbiology: Microbiology 08/18/20 07:27 Peripheral/Venous Blood Culture - Preliminary NO GROWTH AFTER 24 HOURS 08/18/20 07:22 Peripheral/Venous Blood Culture - Preliminary NO GROWTH AFTER 24 HOURS Garay/IV: Voiding Method Toilet IV Catheter Type [Right Peripheral IV Forearm] Active Medications - Current Medications Current Medications: Generic Name Dose Route Start Last Admin Trade Name Freq PRN Reason Stop Dose Admin Acetaminophen 650 mg 08/18/20 06:49 Acetaminophen 325 Mg Tab PO Q4H PRN Pain MILD(1-3)/Fever >100.5/MONCADA Al Hydrox/Mg Hydrox/Simethicone 30 ml 08/18/20 07:00 Alum-Mag Hydroxide-Simethicone [id number]/5ml Oral Liqd 30 Ml PO Q4H PRN Indigestion Albuterol/Ipratropium 1 ampul 08/18/20 08:00 08/19/20 08:41 Ipratropium/Albuterol Sulfate 3 Ml Ampul.Neb IH 1 ampul Q6HRT PRAVEENA Administration Amlodipine Besylate 10 mg 08/18/20 10:00 08/19/20 09:27 Amlodipine 10 Mg Tab PO 10 mg QDAY PRAVEENA Administration Azithromycin 500 mg 08/20/20 10:00 Azithromycin 250 Mg Tab PO 08/22/20 10:01 QDAY PRAVEENA Famotidine 20 mg 08/18/20 10:00 08/19/20 09:27 Famotidine 20 Mg Tab PO 20 mg BID PRAVEENA Administration Hydralazine HCl 5 mg 08/18/20 06:28 08/18/20 22:01 Hydralazine 20 Mg/1 Ml Inj IV 5 mg Q30MIN PRN Administration HYPERTENSION Magnesium Hydroxide 30 ml 08/18/20 07:00 Magnesium Hydroxide (Mom) Oral Liqd Udc PO Q4H PRN Constipation Methylprednisolone Sodium Succinate 60 mg 08/18/20 14:00 08/19/20 05:25 Methylprednisolone Sod Succinate 40 Mg/1 Ml Inj IV 40 mg Q8HR PRAVEENA Administration Metoclopramide HCl 10 mg 08/18/20 07:00 Metoclopramide 10 Mg/2 Ml Inj IV Q6H PRN Nausea And Vomiting Ondansetron HCl 4 mg 08/18/20 06:49 Ondansetron 4 Mg/2 Ml Inj IV Q8H PRN Nausea And Vomiting Senna 8.6 mg 08/18/20 06:49 Sennosides 8.6 Mg Tab PO Q12H PRN Constipation Sodium Chloride 10 ml 08/18/20 10:00 08/19/20 09:28 Sodium Chloride 0.9% 10 Ml Flush Syringe IV 10 ml BID PRAVEENA Administration Sodium Chloride 10 ml 08/18/20 06:49 Sodium Chloride 0.9% 10 Ml Flush Syringe IV PRN PRN LINE FLUSH Zolpidem Tartrate 5 mg 08/18/20 22:00 08/18/20 22:01 Zolpidem 5 Mg Tab PO 5 mg QHS PRN Administration Insomnia
--- NOTE | 2020-08-19 13:43 | Consultation ---
PULMONARY CONSULTATION NOTE CONSULTING PHYSICIAN: Paz Kwan NP REASON FOR CONSULTATION: Asthma exacerbation. CHIEF COMPLAINT AND HISTORY OF PRESENT ILLNESS: The patient is a 60-year-old obese male with past medical history according to him significant for a diagnosis of asthma he has had since he was a kid, but describes it more as a mild intermittent clinical presentation, came to the Emergency Room complaining of shortness of breath, wheezing. He stated that he had run out of his bronchodilators in the preceding couple of days and he feels that is why he was having a flareup. He denied any chest pain. He denied any cough or expectoration. Denied nausea or vomiting. Denied diarrhea, rhinorrhea or any viral type syndrome. Also, denied contact with anyone with known COVID-19 infection. With bronchodilators, his symptoms have improved. He was admitted amongst other things was found to have a lactic acidosis. We are asked to assist with management of the asthma. When I stopped by to see him, he was sitting up in bed, feeling better, still a little short of breath. Denied any chest pain. Denied any hemoptysis. Denied any new onset leg pain or swelling either unilaterally or bilaterally or any suggestion of a deep venous thrombosis really is as much of the history of presentation as I have. PAST MEDICAL HISTORY: Again, history of liver cancer, history of diabetes, history of hypertension, history of asthma. He is obese. PAST SURGICAL HISTORY: Denies. MEDICATIONS: He was on at the time I stopped by to see him were reviewed, pertinent medications include the following: Tylenol 650 mg p.o. q. 4 hours p.r.n. mild pain or fevers, DuoNeb nebulizer treatments nebulized q. 6 hours, amlodipine 10 mg p.o. daily, Pepcid 20 mg p.o. b.i.d., hydralazine p.r.n., azithromycin 500 mg IV daily, Solu-Medrol 60 mg IV q. 8 hours, Reglan 10 mg IV q.6 hours p.r.n. nausea and vomiting, Zofran 4 mg IV q. 8 hours p.r.n. nausea and vomiting, Ambien 5 mg p.o. at bedtime p.r.n. insomnia. ALLERGIES: No known drug allergies. DIET: Obese gentleman. Denies acute weight loss or gain in the preceding few weeks to months. FAMILY AND SOCIAL HISTORY: Lives in the community. He states he lives with his girlfriend. He has a daily alcohol history, 2 bottles of beer daily on the average. Denies IV drug use or abuse. Denies prescription drug use. Denies tobacco use or abuse. There is a family history of hypertension. REVIEW OF SYSTEMS: No loss of consciousness. No new onset seizures. No new onset focal weakness. Denies gross hematochezia or melena. Denies gross hematuria or dysuria. No hematemesis. No hemoptysis. He has had the wheezing. He denies heat or cold intolerance. Denies polydipsia or polyuria. Complete 13-system review of systems obtained. Pertinent positives and/or negatives as in body of history above, otherwise noncontributory. PHYSICAL EXAMINATION: VITAL SIGNS: On examination, the initial temperature was afebrile at 98.7 degrees Fahrenheit, pulse was 98, respiratory rate 15, blood pressure was 140/76, O2 sats were 95%, inspired oxygen concentration at that time was not recorded. When I stopped by to see him, his O2 sats were 98%, but that on 2 liters nasal cannula. GENERAL: He is an elderly looking obese male. Normocephalic, atraumatic, talking to me with mildly increased respiratory effort at rest. HEAD, EYES, EARS, NOSE AND THROAT: Anicteric. No conjunctival erythema. Oropharynx is moist. Mallampati 3-4 oropharynx. No gross jugular venous distention, no thyromegaly. He does have a large neck circumference. Grossly, there were no palpable lymph nodes in the supraclavicular or submandibular lymph node chains. LUNGS: Auscultation of both lung nolasco revealed diminished bilateral breath sounds, prolonged expiratory phase with expiratory wheezing. HEART: Heart sounds 1 and 2 are heard. They were regular in rate and rhythm at time of my evaluation without overt rubs or murmurs. ABDOMEN: Soft, full, protuberant. Bowel sounds are positive, nontender, no palpable hepatosplenomegaly. EXTREMITIES: Without overt digital clubbing or cyanosis. Trace pedal edema at best. Pedal pulses are 2+ bilaterally. NEUROLOGIC: Pupils are equal, round, about 4 mm, reactive to light. Extraocular muscle movements were intact. He moves all 4 extremities spontaneously. SKIN: Normal turgor in the areas examined without overt cellulitis or rash. Please see the wound care nurse's notes for full description of his skin. PSYCHIATRIC: Mood was normal. Affect was appropriate. LABORATORY DATA: From my review are as follows: White cell count 4000, hemoglobin 14.3, hematocrit 41.1, platelet count was 171. No manual differential. Serum sodium 141, potassium 3.9, chloride 108, bicarbonate 22, BUN 18, creatinine 1.0, glucose was 175. Lactic acid was 4.0 went up to 5.8. AST was elevated at 153, ALT 113, total bilirubin 2.0, albumin 2.9. Urinalysis negative for nitrites. He did have small leukocyte esterase with 39 white cells per high power field. Hepatitis C antibody was reactive. Otherwise, the hepatitis screen was negative. Two sets of blood cultures, no growth to date. He had a chest x-ray done. I have reviewed the radiologist's interpretation as well as reviewed the x-ray myself essentially just evidence of hyperinflation with flattening of the right hemidiaphragm, no acute process that I can see. A CT of the abdomen and pelvis has been ordered and is pending. ASSESSMENT: 1. Acute hypoxemic respiratory failure. 2. Acute asthma exacerbation. 3. Leukopenia. 4. History of liver cancer. 5. Diabetes type 2. 6. Hypertension. 7. Obesity. 8. Person under investigation for COVID-19 infection. 9. Elevated serum transaminases. 10. Lactic acidosis. 11. Hyperbilirubinemia. 12. Hepatitis C antibody positive. PLAN: We will continue bronchodilators as ordered. We will continue systemic steroids as ordered and in light of his continued wheezing, I will add long-acting bronchodilators as well as inhaled corticosteroids. I do agree with empiric community-acquired pneumonia therapy, but we will also add Rocephin, both for community-acquired pneumonia, but also for possible urinary tract infection. Urine cultures will be ordered. We will follow the CT of the abdomen and pelvis in light of the lactic acidosis. I will repeat the lactic acid level in the morning. Procalcitonin level will be ordered to evaluate for possible infectious process/inflammatory process in this gentleman. Glycemic control will be for target blood glucose of less than 180 mg/dL. Oxygen will be weaned to keep sats greater than or equal to about 90%. Aspiration precautions will be maintained. GI evaluation. Further interventions will be at the behest of the attending physician. Thank you very much for the consult. We will follow along and make further recommendations as picture progresses/becomes clearer. JOB# [id number] LASHAWN/CHARLENE
[2020-08-19] MEDS: BUDESONIDE 0.5 MG/2 ML NEBU IH SCH ×2 (13:46→21:00)
[2020-08-19] MEDS: ARFORMOTEROL 15 MCG/2 ML NEBU IH SCH ×2 (13:46→21:00)
[2020-08-19] MEDS: cefTRIAXone/NS 1 GM/50 ML 1 GM/50 ML BAG IV SCH (14:43)
--- NOTE | 2020-08-19 15:11 | Progress Note ---
Assessment and Plan Patient alert, awake. Resting on 2 litres O2. O2 saturation 93%. No complaint of chest pain, shortness of breath . Complaining slight cough. Patient afebrile. No leukocytosis. Chest xray done 08/18/20 reported No acute findings. No interval change. Patients Bernal virus test is negative. Patient is on ceftriaxone, zithromax, Albuterol/atrovent aerosol treatments and I/V solumedrol. Recommend SCDs. - Patient Problems (1) Asthma with acute exacerbation Current Visit: No Status: Acute Plan to address problem: O2 2 litres via nasal canula Albuterol/atrovent aerosol treatments. Continue I/V solumedrol Continue Zithromax and ceftriaxone. SCDs. (2) Uncontrolled hypertension Current Visit: No Status: Acute Plan to address problem: Management as per primary care. (3) Obesity (BMI 30.0-34.9) Current Visit: No Status: Chronic Plan to address problem: Recommend to loose weight. Diet and exercise. Recommend sleep study as out patient. (4) Alcohol abuse Current Visit: Yes Status: Acute Plan to address problem: Counseled to stop drinking alcohol. Management as per primary care. Subjective Date of service: 08/19/20 Interval history: Patient alert, awake. Resting on 2 litres O2. O2 saturation 93%. No complaint of chest pain, shortness of breath . Complaining slight cough. Patient afebrile. No leukocytosis. Chest xray done 08/18/20 reported No acute findings. No interval change. Patients Bernal virus test is negative. Patient is on ceftriaxone, zithromax, Albuterol/atrovent aerosol treatments and I/V solumedrol. Recommend SCDs. Objective Vital Signs - 12hr 08/19/20 08/19/20 08/19/20 03:48 08:41 08:42 Temperature 98.0 F Pulse Rate 95 H Pulse Rate [ 90 Bilateral] Respiratory 18 Rate Respiratory 18 Rate [Bilateral ] Blood Pressure 149/88 O2 Sat by Pulse 98 98 Oximetry 08/19/20 08/19/20 08/19/20 09:27 11:45 13:46 Temperature 98.3 F Pulse Rate 90 94 H Pulse Rate [ 92 H Bilateral] Respiratory 22 Rate Respiratory 18 Rate [Bilateral ] Blood Pressure 149/88 149/91 O2 Sat by Pulse 93 Oximetry Constitutional: no acute distress, alert Eyes: non-icteric ENT: oropharynx moist Neck: supple, no lymphadenopathy Effort: mildly labored Ascultation: Bilateral: other (Prolonged expiratory phase.) Cardiovascular: regular rate and rhythm Gastrointestinal: normoactive bowel sounds, soft, non-tender Integumentary: normal Extremities: no cyanosis, no edema Neurologic: normal mental status, non-focal exam, pupils equal and round, CN II- XII normal Psychiatric: mood appropriate CBC and BMP: 08/19/20 05:15 08/19/20 05:15 Abnormal lab findings: Abnormal Labs 08/18/20 08/18/20 08/18/20 04:02 05:32 05:32 WBC 4.0 L MCV 98 H MCH 34 H MCHC 35 H Plt Count Lymph % (Auto) 48.1 H [place] % (Auto) 7.7 H Eos % (Auto) 7.1 H Lymph # (Auto) Seg Neutrophils % 36.5 L Seg Neutrophils # 1.5 L Sodium Chloride 107.7 H BUN Glucose 175 H POC Glucose Lactic Acid 2.20 H* Calcium 8.3 L Total Bilirubin 2.00 H AST 153 H ALT 113 H Alkaline Phosphatase 183 H Albumin 2.9 L Urine WBC (Auto) Hepatitis C Antibody 08/18/20 08/18/20 08/18/20 06:36 07:22 08:41 WBC MCV MCH MCHC Plt Count Lymph % (Auto) [place] % (Auto) Eos % (Auto) Lymph # (Auto) Seg Neutrophils % Seg Neutrophils # Sodium Chloride BUN Glucose POC Glucose Lactic Acid 4.00 H* 5.80 H* Calcium Total Bilirubin AST ALT Alkaline Phosphatase Albumin Urine WBC (Auto) Hepatitis C Antibody Reactive A 08/18/20 08/19/20 08/19/20 17:22 00:03 05:15 WBC MCV 101 H MCH 35 H MCHC Plt Count 75 L Lymph % (Auto) 8.3 L [place] % (Auto) Eos % (Auto) Lymph # (Auto) 0.5 L Seg Neutrophils % 87.7 H Seg Neutrophils # Sodium Chloride BUN Glucose POC Glucose 239 H Lactic Acid Calcium Total Bilirubin AST ALT Alkaline Phosphatase Albumin Urine WBC (Auto) 39.0 H Hepatitis C Antibody 08/19/20 08/19/20 05:15 12:21 WBC MCV MCH MCHC Plt Count Lymph % (Auto) [place] % (Auto) Eos % (Auto) Lymph # (Auto) Seg Neutrophils % Seg Neutrophils # Sodium 133 L D Chloride BUN 24 H Glucose 216 H POC Glucose Lactic Acid 3.10 H* Calcium 8.3 L Total Bilirubin 2.10 H AST 100 H ALT 93 H Alkaline Phosphatase 160 H Albumin 2.8 L Urine WBC (Auto) Hepatitis C Antibody Chest x-ray: report reviewed, image reviewed Additional Studies: CHEST 1 VIEW 08/18/20 INDICATION / CLINICAL INFORMATION: Dyspnea. COMPARISON: 08/10/2019 FINDINGS: SUPPORT DEVICES: None. HEART / MEDIASTINUM: No significant abnormality. LUNGS / PLEURA: No significant pulmonary or pleural abnormality. No pneumothorax. ADDITIONAL FINDINGS: No significant additional findings. IMPRESSION: 1. No acute findings. No interval change.
[2020-08-20] MEDS: methylPREDNISolone Sod Succinate 40 MG/1 ML INJ IV SCH ×3 (06:36→22:05)
[2020-08-20] MEDS: IPRATROPIUM/ALBUTEROL SULFATE 3 ML AMPUL.NEB IH SCH ×5 (06:40→21:51)
[2020-08-20] MEDS: FAMOTIDINE 20 MG TAB PO SCH ×2 (10:12→22:05)
[2020-08-20] MEDS: amLODIPine 10 MG TAB PO SCH (10:12)
[2020-08-20] MEDS: AZITHROMYCIN 250 MG TAB PO SCH (10:17)
[2020-08-20] MEDS: ARFORMOTEROL 15 MCG/2 ML NEBU IH SCH ×3 (10:24→21:51)
[2020-08-20] MEDS: BUDESONIDE 0.5 MG/2 ML NEBU IH SCH ×2 (10:26→21:51)
--- NOTE | 2020-08-20 10:29 | Progress Note ---
Assessment and Plan Assessment and plan: Assessment and plan: This is a 60-year-old male seen in ED. He came to emergency room with complaints of shortness of breath and asthmatic sounds. He reports a past medical history of asthma, hypertension, liver cancer and diabetes. Patient said he has asthma extubation because he ran out of his medicine for 2 days. On assessment, patient has wheezing but he 2.3 he is better since he received a treatment. Patient denies chest pain fever or nausea and vomiting. Patient denies recent contact with Covid. Patient states shortness breath better with rest and worse with exertion. ED work-up shows WBC 4.0, hemoglobin 14.3 and platelet 171 Sodium 141, potassium 3.9, serum glucose 175, lactic 2.20, liver enzymes elevated Checks x-ray done showed no acute finding 08/19: Continue supportive care, awaiting COVID 19 Test. HOME OXYGEN EVALUATION. Social work consult per patient request. If COVID negative and improved respiration, patient can be discharge in am with prescriptions. --COVID-19 test; negative --Asthma with acute exacerbation Current Visit: No Status: Acute Plan to address problem: Solu-Medrol and bronchodilator given in ED Continue systemic steroid Monitor oxygen saturation keep patient sats greater than 92% Chest x-ray is done no acute findings Patient out of his medicine x2 days-discussed medication compliance Empiric antibiotic with azithromycin -- SOB (shortness of breath) Current Visit: Yes Status: Acute Plan to address problem: SOB -secondary to asthma exacerbation Continue bronchodilator, systemic steroid, and oxygen supplement Patient seen in the ED noted wheezing but patient said he is better than he was when he came. --Essential (primary) hypertension Current Visit: Yes Status: Acute Plan to address problem: Monitor blood pressure Resume home antihypertensive Will adjust blood pressure medicine if needed -- Abnormal liver enzymes Current Visit: No Status: Acute Plan to address problem: Questionable cause, likely 2/2 to alcohol use Patient reported history of liver cancer Patient has abnormal liver enzymes Monitor liver enzymes-check acute hepatitis panel Supportive care -- Alcohol abuse Current Visit: Yes Status: Acute Plan to address problem: Discuss alcohol use cessation Monitor patient for withdrawal We will start alcohol withdrawal protocol if needed --Elevated lactic acid level Current Visit: Yes Status: Acute Plan to address problem: Mild -2.2 on admission. Patient temperature and WBC normal Started on empiric antibiotic with azithromycin Blood culture and urinalysis [id number] with results -- DVT prophylaxis Current Visit: Yes Status: Acute Plan to address problem: SCD will hold anticoagulant due to liver problem History Interval history: I have seen and examined the patient at the bedside Patient's chart and medications reviewed Covid test negative Patient feels better Mild shortness of breath Vital signs noted Hospitalist Physical - Constitutional Vitals: Temp Pulse Resp BP Pulse Ox 98.1 F 78 18 169/99 91 08/20/20 08:20 08/20/20 08:20 08/20/20 08:20 08/20/20 08:20 08/20/20 08:20 General appearance: Present: mild distress, well-nourished - EENT Eyes: Present: PERRL, EOM intact - Neck Neck: Present: supple, normal ROM - Respiratory Respiratory effort: normal Respiratory: bilateral: diminished, rhonchi, negative: rales, wheezing - Cardiovascular Rhythm: regular Heart Sounds: Present: S1 & S2 - Extremities Extremities: no ischemia, No edema - Abdominal General gastrointestinal: soft, non-tender, non-distended, normal bowel sounds - Integumentary Integumentary: Present: clear, warm - Psychiatric Psychiatric: appropriate mood/affect, cooperative - Neurologic Neurologic: CNII-XII intact, moves all extremities Results - Labs CBC & Chem 7: 08/19/20 05:15 08/19/20 05:15 Labs: Laboratory Last Values WBC 6.0 K/mm3 (4.5-11.0) 08/19/20 05:15 RBC 3.89 M/mm3 (3.65-5.03) 08/19/20 05:15 Hgb 13.4 gm/dl (11.8-15.2) 08/19/20 05:15 Hct 39.1 % (35.5-45.6) 08/19/20 05:15 MCV 101 fl (84-94) H 08/19/20 05:15 MCH 35 pg (28-32) H 08/19/20 05:15 MCHC 34 % (32-34) 08/19/20 05:15 RDW 14.5 % (13.2-15.2) 08/19/20 05:15 Plt Count 75 K/mm3 (140-440) L 08/19/20 05:15 Lymph % (Auto) 8.3 % (13.4-35.0) L 08/19/20 05:15 [place] % (Auto) 4.0 % (0.0-7.3) 08/19/20 05:15 Eos % (Auto) 0.0 % (0.0-4.3) 08/19/20 05:15 Baso % (Auto) 0.0 % (0.0-1.8) 08/19/20 05:15 Lymph # (Auto) 0.5 K/mm3 (1.2-5.4) L 08/19/20 05:15 [place] # (Auto) 0.2 K/mm3 (0.0-0.8) 08/19/20 05:15 Eos # (Auto) 0.0 K/mm3 (0.0-0.4) 08/19/20 05:15 Baso # (Auto) 0.0 K/mm3 (0.0-0.1) 08/19/20 05:15 Seg Neutrophils % 87.7 % (40.0-70.0) H 08/19/20 05:15 Seg Neutrophils # 5.3 K/mm3 (1.8-7.7) 08/19/20 05:15 Sodium 133 mmol/L (137-145) L D 08/19/20 05:15 Potassium 4.1 mmol/L (3.6-5.0) 08/19/20 05:15 Chloride 103.2 mmol/L (98-107) 08/19/20 05:15 Carbon Dioxide 23 mmol/L (22-30) 08/19/20 05:15 Anion Gap 11 mmol/L 08/19/20 05:15 BUN 24 mg/dL (9-20) H 08/19/20 05:15 Creatinine 0.8 mg/dL (0.8-1.3) 08/19/20 05:15 Estimated GFR > 60 ml/min 08/19/20 05:15 BUN/Creatinine Ratio 30 % 08/19/20 05:15 Glucose 216 mg/dL (75-100) H 08/19/20 05:15 POC Glucose 239 mg/dL (70-105) H 08/19/20 00:03 Hemoglobin A1c 5.5 % (4-6) 08/18/20 07:22 Lactic Acid 1.60 mmol/L (0.7-2.0) 08/20/20 07:17 Calcium 8.3 mg/dL (8.4-10.2) L 08/19/20 05:15 Total Bilirubin 2.10 mg/dL (0.1-1.2) H 08/19/20 05:15 AST 100 units/L (5-40) H 08/19/20 05:15 ALT 93 units/L (7-56) H 08/19/20 05:15 Alkaline Phosphatase 160 units/L (35-129) H 08/19/20 05:15 Total Protein 6.5 g/dL (6.3-8.2) 08/19/20 05:15 Albumin 2.8 g/dL (3.9-5) L 08/19/20 05:15 Albumin/Globulin Ratio 0.8 % 08/19/20 05:15 Procalcitonin 0.05 ng/mL (<0.15) 08/19/20 13:23 Urine Color Yellow (Yellow) 08/18/20 17:22 Urine Turbidity Clear (Clear) 08/18/20 17:22 Urine pH 6.0 (5.0-7.0) 08/18/20 17:22 Ur Specific [place] 1.023 (1.003-1.030) 08/18/20 17:22 Urine Protein <15 mg/dl mg/dL (Negative) 08/18/20 17:22 Urine Glucose (UA) >=500 mg/dL (Negative) 08/18/20 17:22 Urine Ketones Neg mg/dL (Negative) 08/18/20 17:22 Urine Blood Sm (Negative) 08/18/20 17:22 Urine Nitrite Neg (Negative) 08/18/20 17:22 Urine Bilirubin Neg (Negative) 08/18/20 17:22 Urine Urobilinogen 2.0 mg/dL (<2.0) 08/18/20 17:22 Ur Leukocyte Esterase Sm (Negative) 08/18/20 17:22 Urine WBC (Auto) 39.0 /HPF (0.0-6.0) H 08/18/20 17:22 Urine RBC (Auto) 4.0 /HPF (0.0-6.0) 08/18/20 17:22 U Epithel Cells (Auto) 1.0 /HPF (0-13.0) 08/18/20 17:22 Coronavirus (PCR) Negative (Negative) 08/19/20 Unknown Hepatitis A IgM Ab Non-reactive (NonReactive) 08/18/20 07:22 Hep Bs Antigen Nonreactive (Negative) 08/18/20 07:22 Hep B Core IgM Ab Non-reactive (NonReactive) 08/18/20 07:22 Hepatitis C Antibody Reactive (NonReactive) A 08/18/20 07:22 Microbiology: Microbiology 08/18/20 07:27 Peripheral/Venous Blood Culture - Preliminary NO GROWTH AFTER 24 HOURS 08/18/20 07:22 Peripheral/Venous Blood Culture - Preliminary NO GROWTH AFTER 24 HOURS Garay/IV: Voiding Method Urinal IV Catheter Type [Right Peripheral IV Forearm] Active Medications - Current Medications Current Medications: Generic Name Dose Route Start Last Admin Trade Name Freq PRN Reason Stop Dose Admin Acetaminophen 650 mg 08/18/20 06:49 Acetaminophen 325 Mg Tab PO Q4H PRN Pain MILD(1-3)/Fever >100.5/MONCADA Al Hydrox/Mg Hydrox/Simethicone 30 ml 08/18/20 07:00 Alum-Mag Hydroxide-Simethicone 342-303-50mc/5ml Oral Liqd 30 Ml PO Q4H PRN Indigestion Albuterol/Ipratropium 1 ampul 08/18/20 08:00 08/20/20 10:25 Ipratropium/Albuterol Sulfate 3 Ml Ampul.Neb IH Not Given Q6HRT PRAVEENA Amlodipine Besylate 10 mg 08/18/20 10:00 08/20/20 10:12 Amlodipine 10 Mg Tab PO 10 mg QDAY PRAVEENA Administration Arformoterol Tartrate 15 mcg 08/19/20 13:30 08/20/20 10:26 Arformoterol 15 Mcg/2 Ml Nebu IH Not Given Q12HRT PRAVEENA Azithromycin 500 mg 08/20/20 10:00 08/20/20 10:17 Azithromycin 250 Mg Tab PO 08/22/20 10:01 500 mg QDAY PRAVEENA Administration Budesonide 0.5 mg 08/19/20 13:30 08/20/20 10:26 Budesonide 0.5 Mg/2 Ml Nebu IH Not Given Q12HRT PRAVEENA Famotidine 20 mg 08/18/20 10:00 08/20/20 10:12 Famotidine 20 Mg Tab PO 20 mg BID PRAVEENA Administration Hydralazine HCl 5 mg 08/18/20 06:28 08/18/20 22:01 Hydralazine 20 Mg/1 Ml Inj IV 5 mg Q30MIN PRN Administration HYPERTENSION Ceftriaxone Sodium 1 gm in 50 mls @ 100 mls/hr 08/19/20 14:00 08/19/20 14:43 Rocephin/Ns 1 Gm/50 Ml IV 08/24/20 13:59 100 mls/hr Q24H PRAVEENA Administration Protocol Magnesium Hydroxide 30 ml 08/18/20 07:00 Magnesium Hydroxide (Mom) Oral Liqd Udc PO Q4H PRN Constipation Methylprednisolone Sodium Succinate 60 mg 08/18/20 14:00 08/20/20 06:36 Methylprednisolone Sod Succinate 40 Mg/1 Ml Inj IV 60 mg Q8HR PRAVEENA Administration Metoclopramide HCl 10 mg 08/18/20 07:00 Metoclopramide 10 Mg/2 Ml Inj IV Q6H PRN Nausea And Vomiting Ondansetron HCl 4 mg 08/18/20 06:49 Ondansetron 4 Mg/2 Ml Inj IV Q8H PRN Nausea And Vomiting Senna 8.6 mg 08/18/20 06:49 Sennosides 8.6 Mg Tab PO Q12H PRN Constipation Sodium Chloride 10 ml 08/18/20 10:00 08/20/20 10:12 Sodium Chloride 0.9% 10 Ml Flush Syringe IV 10 ml BID PRAVEENA Administration Sodium Chloride 10 ml 08/18/20 06:49 Sodium Chloride 0.9% 10 Ml Flush Syringe IV PRN PRN LINE FLUSH Zolpidem Tartrate 5 mg 08/18/20 22:00 08/18/20 22:01 Zolpidem 5 Mg Tab PO 5 mg QHS PRN Administration Insomnia
--- NOTE | 2020-08-20 10:40 | Progress Note ---
Assessment and Plan Patient alert, awake. Resting on 3 litres O2. O2 saturation 100%. No complaint of chest pain, shortness of breath . Complaining slight cough. Patient afebrile. No leukocytosis. Chest xray done 08/18/20 reported No acute findings. No interval change. Patients Bernal virus test is negative. Patient is on ceftriaxone, zithromax, Albuterol/atrovent aerosol treatments and I/V solumedrol. Recommend SCDs. Repeat chest xray and ABGs on room air tomorrow. - Patient Problems (1) Asthma with acute exacerbation Current Visit: No Status: Acute Plan to address problem: O2 3 litres via nasal canula Albuterol/atrovent aerosol treatments. Continue I/V solumedrol Continue Zithromax and ceftriaxone. SCDs. (2) Uncontrolled hypertension Current Visit: No Status: Acute Plan to address problem: Management as per primary care. (3) Obesity (BMI 30.0-34.9) Current Visit: No Status: Chronic Plan to address problem: Recommend to loose weight. Diet and exercise. Recommend sleep study as out patient. (4) Alcohol abuse Current Visit: Yes Status: Acute Plan to address problem: Counseled to stop drinking alcohol. Management as per primary care. Subjective Date of service: 08/20/20 Interval history: Patient alert, awake. Resting on 3 litres O2. O2 saturation 100%. No complaint of chest pain, shortness of breath . Complaining slight cough. Patient afebrile. No leukocytosis. Chest xray done 08/18/20 reported No acute findings. No interval change. Patients Bernal virus test is negative. Patient is on ceftriaxone, zithromax, Albuterol/atrovent aerosol treatments and I/V solumedrol. Recommend SCDs. Repeat chest xray and ABGs on room air tomorrow. Objective Vital Signs - 12hr 08/19/20 08/19/20 08/20/20 23:29 23:50 04:16 Temperature 98.0 F 97.9 F Pulse Rate 86 85 Pulse Rate [ Bilateral] Pulse Rate [ 87 Left Radial] Respiratory 18 16 16 Rate Respiratory Rate [Bilateral ] Blood Pressure 141/85 145/89 O2 Sat by Pulse 97 94 91 Oximetry 08/20/20 08/20/20 08/20/20 08:20 10:00 10:37 Temperature 98.1 F Pulse Rate 78 Pulse Rate [ 77 Bilateral] Pulse Rate [ Left Radial] Respiratory 18 20 Rate Respiratory 18 Rate [Bilateral ] Blood Pressure 169/99 O2 Sat by Pulse 91 100 Oximetry Constitutional: no acute distress, alert Eyes: non-icteric ENT: oropharynx moist Neck: supple, no lymphadenopathy Effort: mildly labored Ascultation: Bilateral: other (Prolonged expiratory phase.) Cardiovascular: regular rate and rhythm Gastrointestinal: normoactive bowel sounds, soft, non-tender Integumentary: normal Extremities: no cyanosis, no edema Neurologic: normal mental status, non-focal exam, pupils equal and round, CN II- XII normal Psychiatric: mood appropriate CBC and BMP: 08/19/20 05:15 08/19/20 05:15 Abnormal lab findings: Abnormal Labs 08/18/20 08/18/20 08/18/20 04:02 05:32 05:32 WBC 4.0 L MCV 98 H MCH 34 H MCHC 35 H Plt Count Lymph % (Auto) 48.1 H Charles % (Auto) 7.7 H Eos % (Auto) 7.1 H Lymph # (Auto) Seg Neutrophils % 36.5 L Seg Neutrophils # 1.5 L Sodium Chloride 107.7 H BUN Glucose 175 H POC Glucose Lactic Acid 2.20 H* Calcium 8.3 L Total Bilirubin 2.00 H AST 153 H ALT 113 H Alkaline Phosphatase 183 H Albumin 2.9 L Urine WBC (Auto) Hepatitis C Antibody 08/18/20 08/18/20 08/18/20 06:36 07:22 08:41 WBC MCV MCH MCHC Plt Count Lymph % (Auto) Charles % (Auto) Eos % (Auto) Lymph # (Auto) Seg Neutrophils % Seg Neutrophils # Sodium Chloride BUN Glucose POC Glucose Lactic Acid 4.00 H* 5.80 H* Calcium Total Bilirubin AST ALT Alkaline Phosphatase Albumin Urine WBC (Auto) Hepatitis C Antibody Reactive A 08/18/20 08/19/20 08/19/20 17:22 00:03 05:15 WBC MCV 101 H MCH 35 H MCHC Plt Count 75 L Lymph % (Auto) 8.3 L Charles % (Auto) Eos % (Auto) Lymph # (Auto) 0.5 L Seg Neutrophils % 87.7 H Seg Neutrophils # Sodium Chloride BUN Glucose POC Glucose 239 H Lactic Acid Calcium Total Bilirubin AST ALT Alkaline Phosphatase Albumin Urine WBC (Auto) 39.0 H Hepatitis C Antibody 08/19/20 08/19/20 05:15 12:21 WBC MCV MCH MCHC Plt Count Lymph % (Auto) Charles % (Auto) Eos % (Auto) Lymph # (Auto) Seg Neutrophils % Seg Neutrophils # Sodium 133 L D Chloride BUN 24 H Glucose 216 H POC Glucose Lactic Acid 3.10 H* Calcium 8.3 L Total Bilirubin 2.10 H AST 100 H ALT 93 H Alkaline Phosphatase 160 H Albumin 2.8 L Urine WBC (Auto) Hepatitis C Antibody
[2020-08-20] MEDS: cefTRIAXone/NS 1 GM/50 ML 1 GM/50 ML BAG IV SCH (14:02)
[2020-08-21] MEDS: IPRATROPIUM/ALBUTEROL SULFATE 3 ML AMPUL.NEB IH SCH ×2 (02:22→09:36)
[2020-08-21] MEDS: methylPREDNISolone Sod Succinate 40 MG/1 ML INJ IV SCH (05:38)
[2020-08-21 08:48] VITALS: BP 143/81
--- NOTE | 2020-08-21 09:07 | XRay Report ---
XR chest routine 2V INDICATION / CLINICAL INFORMATION: Bronchial asthma, cough.. COMPARISON: 08/18/2020 FINDINGS: SUPPORT DEVICES: None. HEART /PULMONARY VASCULATURE: Stable. LUNGS / PLEURA: Low lung volumes remain. No significant pulmonary or pleural abnormality. No pneumoth orax. ADDITIONAL FINDINGS: No significant additional findings. IMPRESSION: Low lung volumes without acute cardiopulmonary process. Signer Name: Jeevan Wolff MD Signed: 08/21/2020 9:02 AM Workstation Name: [id number]
--- NOTE | 2020-08-21 09:25 | Discharge Summary ---
Providers - Providers Date of Admission: 08/18/20 05:59 Date of discharge: 08/21/20 Attending physician: ALEJANDRO CHOE 08/18/20 06:49 Consult to Physician [CONS] Routine Comment: Consulting Provider: KWAKU HONG Physician Instructions: Reason For Exam: astma exacerbation 08/19/20 12:08 Consult to Case Management [CONS] Routine Services Needed at Discharge: Childbirth Educator Notified:: NO Primary care physician: PROJECT INSPECTOR Hospitalization Condition: Fair Disposition: DC-30 STILL A PATIENT Time spent for discharge: 32 min Core Measure Documentation - Palliative Care Palliative Care/ Comfort Measures: Not Applicable - Core Measures Any of the following diagnoses?: none Exam - Constitutional Vitals: Temp Pulse Resp BP Pulse Ox 97.9 F 67 18 143/81 90 08/21/20 07:50 08/21/20 07:50 08/21/20 07:50 08/21/20 07:50 08/21/20 07:50 General appearance: Present: no acute distress, well-nourished - EENT Eyes: Present: PERRL, EOM intact - Neck Neck: Present: supple, normal ROM - Respiratory Respiratory effort: normal Respiratory: bilateral: diminished, rales, negative: rhonchi, wheezing - Cardiovascular Rhythm: regular Heart Sounds: Present: S1 & S2 - Extremities Extremities: no ischemia, No edema - Abdominal General gastrointestinal: Present: soft, non-tender, non-distended, normal bowel sounds - Integumentary Integumentary: Present: clear, warm - Musculoskeletal Musculoskeletal: strength equal bilaterally, generalized weakness - Psychiatric Psychiatric: appropriate mood/affect, cooperative - Neurologic Neurologic: CNII-XII intact, moves all extremities Plan Activity: no restrictions Diet: other (Cardiac diet) Additional Instructions: Advised to follow private oncologist Dr. Wang per schedule/in 1 week Follow up with: PRIMARY CAREMD [Primary Care Provider] - 3-5 Days AMANDA HYLTON MD [Staff Physician] - 7 Days Forms: Discharge Signature Page Prescriptions: Nebulizer [Aeroneb Go Nebulizer] 1 each MC BID #1 each amLODIPine 10 mg PO DAILY #30 tab Famotidine [Pepcid] 20 mg PO BID #30 tablet Prednisone [predniSONE 10 mg (6-Day Pack, 21 Tabs)] 10 mg PO .TAPER #1 tab.ds.pk Albuterol Mdi (or & Nicu Only) [ProAir HFA Inhaler] 2 puff IH QID PRN #8.5 gram PRN Reason: Shortness Of Breath ALBUTEROL NEB's [Proventil 0.083% NEBS] 2.5 mg IH Q4HRT PRN #60 nebu PRN Reason: Shortness Of Breath Budesonide [Pulmicort Respules] 0.5 mg IH Q12HRT #60 nebu Azithromycin [Zithromax Z-MIRIAN] 0 mg PO DAILY #1 pack
[2020-08-21] MEDS: BUDESONIDE 0.5 MG/2 ML NEBU IH SCH (09:36)
[2020-08-21] MEDS: ARFORMOTEROL 15 MCG/2 ML NEBU IH SCH (09:36)
[2020-08-21] MEDS: FAMOTIDINE 20 MG TAB PO SCH (10:19)
[2020-08-21] MEDS: amLODIPine 10 MG TAB PO SCH (10:19)
[2020-08-21] MEDS: AZITHROMYCIN 250 MG TAB PO SCH (10:19)
[2020-08-21] MEDS ORDERED: methylPREDNISolone Sod Succinate 40 MG/1 ML INJ IV SCH (18:00)
== END 2020-08-21 12:45 | disposition home or self-care (01) | DRG 203 ==
LOC: SUATTDRO 03:54 → ED 03:54 → CC1 05:59 → 3A 11:27 → 4A 08-19 19:01
PROVIDERS: ADMIT Internal Medicine Geriatric Medicine; ATTEND Internal Medicine
DX: J45.52 Severe persistent asthma with status asthmaticus (principal); I10 Essential (primary) hypertension; R74.02 Elevation of levels of lactic acid dehydrogenase [LDH]; F10.10 Alcohol abuse, uncomplicated; Y90.9 Presence of alcohol in blood, level not specified; E66.9 Obesity, unspecified; E11.9 Type 2 diabetes mellitus without complications; Z20.822 Contact with and (suspected) exposure to COVID-19; Z79.51 Long term (current) use of inhaled steroids; I25.2 Old myocardial infarction; Z87.442 Personal history of urinary calculi; Z85.05 Personal history of malignant neoplasm of liver; Z82.49 Family history of ischemic heart disease and other diseases of the circulatory system; Z68.34 Body mass index [BMI] 34.0-34.9, adult; Z71.3 Dietary counseling and surveillance
CPT/HCPCS: 36415; 71045; 71046; 74176; 80053; 80074; 81001; 82140; 82962; 83036; 84145; 85025; 87040; 87086; 94640; 94644; 94760; 96374; 96375; G0378; J0360; J0456; J0696; J2920; J3475; J7030; J7050; U0003

== ENCOUNTER 2020-12-20 04:21 | Emergency (ER) | payer SELFPAY ==
[2020-12-20 04:55] LABS: Bacteria,Urine 3+ /HPF (Negative); Bilirubin,Urine NEG (Negative); Blood,Urine MOD (Negative); Color,Urine Yellow (Yellow); Mucus,Urine 1+ /HPF; WBC,Urine > 182.0 /HPF (0.0-6.0)
[2020-12-20] MEDS ORDERED: KETOROLAC 30 MG/1 ML INJ IV ONE (05:15)
[2020-12-20] MEDS ORDERED: ONDANSETRON 4 MG/2 ML INJ IV ONE ×2 (05:15→07:51)
[2020-12-20 05:17] VITALS: BP 143/88
[2020-12-20 05:34] LABS: Basophils % (Auto) 0.5 % (0.0-1.8); Eosinophils # (Auto) 0.1 K/mm3 (0.0-0.4); Eosinophils % (Auto) 3.9 % (0.0-4.3); Hematocrit 38.3 % (35.5-45.6); Hemoglobin 13.7 gm/dl (11.8-15.2); Lymphocytes # (Auto) 0.8 K/mm3 (1.2-5.4); Lymphocytes % (Auto) 23.4 % (13.4-35.0); Mean Corpuscular HGB Conc 36 % (32-34); Mean Corpuscular Volume 101 fl (84-94); Monocytes # (Auto) 0.4 K/mm3 (0.0-0.8); Monocytes % (Auto) 12.2 % (0.0-7.3); Red Blood Count 3.81 M/mm3 (3.65-5.03); Red Cell Distribution Width 14.2 % (13.2-15.2)
[2020-12-20 05:35] LABS: Platelet Count 68 K/mm3 (140-440)
[2020-12-20] MEDS ORDERED: SODIUM CHLORIDE 0.9% 1000 ML 1,000 ML IV ONE (05:47)
[2020-12-20 05:57] LABS: Alanine Aminotransferase 90 units/L (7-56); Albumin 2.5 g/dL (3.9-5); BUN/Creatinine Ratio 13; Blood Urea Nitrogen 12 mg/dL (9-20); Hemolysis Index 12
--- NOTE | 2020-12-20 06:25 | Cat Scan Report ---
CT ABDOMEN AND PELVIS WITHOUT CONTRAST INDICATION / CLINICAL INFORMATION: Right flank pain. TECHNIQUE: Axial CT images were obtained through the abdomen and pelvis without IV contrast. All CT scans at this location are performed using CT dose reduction for ALARA by means of automated exposure control. COMPARISON: 08/18/2020 FINDINGS: LOWER CHEST: No significant abnormality. LIVER: Cirrhotic configuration unchanged. Mixed density mass arising from the anterior aspect of the left hepatic lobe is increase in size from 6.1 x 5.7 cm-6.6 x 6.5 cm. GALLBLADDER: Calcified stone versus polyp at the fundus. 2 mm stone at the proximal cystic duct. Mild gallbladder distention. BILE DUCTS: No significant abnormality. PANCREAS: No significant abnormality. SPLEEN: Persistent splenomegaly measuring 14.9 cm. ADRENALS: No significant abnormality. RIGHT KIDNEY / URETER: Persistent prominent dilatation of the right renal collecting system and urete r extending to a stone measuring 1.5 x 2 cm. Right renal cyst upper pole. Small nonobstructing calyce al stones lower pole. Mild cortical atrophy. LEFT KIDNEY / URETER: Small nonobstructing calyceal stones lower pole. STOMACH / SMALL BOWEL: No significant abnormality. COLON: No significant abnormality. APPENDIX: No significant abnormality. PERITONEUM: No free fluid. No free air. No fluid collection. LYMPH NODES: No significant adenopathy. VASCULAR STRUCTURES: Small varices at the gastrohepatic ligament. URINARY BLADDER: No significant abnormality. REPRODUCTIVE ORGANS: Mild prostate calcification. ADDITIONAL FINDINGS: Small fat-containing umbilical hernia. SKELETAL SYSTEM: No significant abnormality. IMPRESSION: 1. Persistent large obstructing stone within the right ureter at L5 with relatively high-grade obstru ction. Mild cortical atrophy. 2. Nonobstructing calyceal stones bilaterally. 3. Cirrhosis with portal hypertension including splenomegaly and varices 4. Enlarging left hepatic mass. 5. Small stone now lies within the cystic duct. The gallbladder is mildly distended. Signer Name: Jerson Diallo MD Signed: 12/20/2020 6:21 AM Workstation Name: [id number]
--- NOTE | 2020-12-20 07:27 | Emergency Department Report ---
ED Abdominal Pain HPI - General Chief Complaint: Abdominal Pain Stated Complaint: ABDOMINAL PAIN Time Seen by Provider: 12/20/20 07:08 Source: patient Mode of arrival: Ambulatory Limitations: No Limitations - History of Present Illness Initial Comments: 60-year-old male with a past medical history of asthma, hypertension alcohol abuse, diabetes, liver cirrhosis and liver cancer presented to the ER last night via EMS with complaints of abdominal pain. Patient states that the pain was in the lower abdomen and radiated around to his back and he was also having epigastric abdominal pain. He states that his pain last night was a 10 out of 10. Patient has been in the ER now for about 3 hours and currently he states his pain is about 7 out of 10. He denies any nausea, vomiting, diarrhea, constipation, or any bloody stools. He denies any UTI symptoms. He denies any fever or chills. Patient states that he finally about his liver cancer when he was admitted here in August 2020 for an asthma exacerbation. Patient states that he has followed up with the few doctors including an oncologist, but they have not done anything for him, and each time he goes to the doctor office he has to pay out of pocket and he cannot afford the doctors visits. He also does not have a primary care doctor. The diabetes is listed in his medical records patient is very adamant that he does not have diabetes. MD Complaint: abdominal pain -: Gradual (lastnight ) Severity scale (0 -10): 4 - Related Data Home Medications Medication Instructions Recorded Confirmed Last Taken Multivitamin [Multiple Vitamins] 1 each PO DAILY 08/11/18 08/20/20 Unknown Previous Rx's Medication Instructions Recorded Last Taken Type ALBUTEROL NEB's [Proventil 0.083% 2.5 mg IH Q4HRT PRN #60 nebu 08/21/20 Unknown Rx NEBS] Albuterol Mdi (or & Nicu Only) 2 puff IH QID PRN #8.5 gram 08/21/20 Unknown Rx [ProAir HFA Inhaler] Azithromycin [Zithromax Z-MIRIAN] 0 mg PO DAILY #1 pack 08/21/20 Unknown Rx Budesonide [Pulmicort Respules] 0.5 mg IH Q12HRT #60 nebu 08/21/20 Unknown Rx Nebulizer [Aeroneb Go Nebulizer] 1 each MC BID #1 each 08/21/20 Unknown Rx Prednisone [predniSONE 10 mg 10 mg PO .TAPER #1 tab.ds.pk 08/21/20 Unknown Rx (6-Day Pack, 21 Tabs)] amLODIPine 10 mg PO DAILY #30 tab 08/21/20 Unknown Rx Famotidine [Pepcid] 20 mg PO BID #30 tablet 12/20/20 Unknown Rx Ondansetron [Zofran Odt] 4 mg PO Q8HR #15 tab.rapdis 12/20/20 Unknown Rx cephALEXin [Keflex] 500 mg PO Q6HR #40 capsule 12/20/20 Unknown Rx traMADoL [Ultram] 50 - 100 mg PO Q4HR PRN #15 tablet 12/20/20 Unknown Rx Allergies Allergy/AdvReac Type Severity Reaction Status Date / Time No Known Allergies Allergy Verified 04/28/17 22:06 ED Review of Systems ROS: Stated complaint: ABDOMINAL PAIN Other details as noted in HPI Comment: All other systems reviewed and negative Constitutional: denies: chills, fever Eyes: denies: eye pain, eye discharge, vision change ENT: denies: ear pain, throat pain Respiratory: denies: cough, shortness of breath, SOB with exertion, SOB at rest, stridor, wheezing Cardiovascular: denies: chest pain, palpitations Gastrointestinal: abdominal pain. denies: nausea, vomiting, diarrhea, constipation, hematemesis, melena, hematochezia Genitourinary: as per HPI. denies: urgency, dysuria, frequency, hematuria, discharge, testicular pain, testicular mass Musculoskeletal: back pain. denies: joint swelling, arthralgia, myalgia Skin: denies: rash, lesions, change in hair/nails, pruritus Neurological: denies: headache, weakness, paresthesias Psychiatric: denies: anxiety, depression, auditory hallucinations, visual h allucinations, homicidal thoughts, suicidal thoughts Hematological/Lymphatic: denies: easy bleeding, easy bruising, swollen glands ED Past Medical Hx - Past Medical History Previous Medical History?: Yes Hx Hypertension: Yes Hx Heart Attack/AMI: Yes Hx Congestive Heart Failure: No Hx Diabetes: No Hx Deep Vein Thrombosis: No Hx Kidney Stones: Yes Hx Asthma: Yes Hx COPD: No - Surgical History Past Surgical History?: No Hx Coronary Stent: No Hx Pacemaker: No Hx Internal Defibrillator: No - Social History Smoking Status: Never Smoker Substance Use Type: Alcohol - Medications Home Medications: Home Medications Medication Instructions Recorded Confirmed Last Taken Type Multivitamin [Multiple Vitamins] 1 each PO DAILY 08/11/18 08/20/20 Unknown History ALBUTEROL NEB's [Proventil 0.083% 2.5 mg IH Q4HRT PRN #60 nebu 08/21/20 Unknown Rx NEBS] Albuterol Mdi (or & Nicu Only) 2 puff IH QID PRN #8.5 gram 08/21/20 Unknown Rx [ProAir HFA Inhaler] Azithromycin [Zithromax Z-MIRIAN] 0 mg PO DAILY #1 pack 08/21/20 Unknown Rx Budesonide [Pulmicort Respules] 0.5 mg IH Q12HRT #60 nebu 08/21/20 Unknown Rx Nebulizer [Aeroneb Go Nebulizer] 1 each MC BID #1 each 08/21/20 Unknown Rx Prednisone [predniSONE 10 mg 10 mg PO .TAPER #1 tab.ds.pk 08/21/20 Unknown Rx (6-Day Pack, 21 Tabs)] amLODIPine 10 mg PO DAILY #30 tab 08/21/20 Unknown Rx Famotidine [Pepcid] 20 mg PO BID #30 tablet 12/20/20 Unknown Rx Ondansetron [Zofran Odt] 4 mg PO Q8HR #15 tab.rapdis 12/20/20 Unknown Rx cephALEXin [Keflex] 500 mg PO Q6HR #40 capsule 12/20/20 Unknown Rx traMADoL [Ultram] 50 - 100 mg PO Q4HR PRN #15 tablet 12/20/20 Unknown Rx ED Physical Exam - General Limitations: No Limitations General appearance: alert, in no apparent distress - Head Head exam: Present: atraumatic, normocephalic, normal inspection - Eye Eye exam: Present: normal appearance, PERRL, EOMI Pupils: Present: normal accommodation - Respiratory Respiratory exam: Present: normal lung sounds bilaterally. Absent: respiratory distress - Cardiovascular Cardiovascular Exam: Present: regular rate, normal rhythm, normal heart sounds - GI/Abdominal GI/Abdominal exam: Present: soft, tenderness (Mild tenderness to palpation right upper quadrant), organomegaly (Enlarged liver palpated on exam). Absent: distended, guarding, rebound, rigid - Neurological Exam Neurological exam: Present: alert, oriented X3, CN II-XII intact, normal gait - Psychiatric Psychiatric exam: Present: normal affect, normal mood - Skin Skin exam: Present: intact ED Course Vital Signs 12/20/20 12/20/20 04:35 06:40 Temperature 98.7 F Pulse Rate 86 81 Respiratory 20 16 Rate Blood Pressure 143/88 O2 Sat by Pulse 94 97 Oximetry ED Medical Decision Making - Lab Data Result diagrams: 12/20/20 05:27 12/20/20 05:27 - Radiology Data Radiology results: report reviewed Patient: GLADYS ROMAN MR#: [id number] : 1960 Acct:[id number] Age/Sex: 60 / M ADM Date: 12/20/20 Loc: ED Attending Dr: Ordering Physician: TOLU PALOMINO MD Date of Service: 12/20/20 Procedure(s): CT abdomen pelvis wo con Accession Number(s): [id number] cc: ED MD GEORGETTE CT ABDOMEN AND PELVIS WITHOUT CONTRAST INDICATION / CLINICAL INFORMATION: Right flank pain. TECHNIQUE: Axial CT images were obtained through the abdomen and pelvis without IV contrast. All CT scans at this location are performed using CT dose reduction for ALARA by means of automated exposure control. COMPARISON: 08/18/2020 FINDINGS: LOWER CHEST: No significant abnormality. LIVER: Cirrhotic configuration unchanged. Mixed density mass arising from the anterior aspect of the left hepatic lobe is increase in size from 6.1 x 5.7 cm-6.6 x 6.5 cm. GALLBLADDER: Calcified stone versus polyp at the fundus. 2 mm stone at the proximal cystic duct. Mild gallbladder distention. BILE DUCTS: No significant abnormality. PANCREAS: No significant abnormality. SPLEEN: Persistent splenomegaly measuring 14.9 cm. ADRENALS: No significant abnormality. RIGHT KIDNEY / URETER: Persistent prominent dilatation of the right renal collecting system and ureter extending to a stone measuring 1.5 x 2 cm. Right renal cyst upper pole. Small nonobstructing calyceal stones lower pole. Mild cortical atrophy. LEFT KIDNEY / URETER: Small nonobstructing calyceal stones lower pole. STOMACH / SMALL BOWEL: No significant abnormality. COLON: No significant abnormality. APPENDIX: No significant abnormality. PERITONEUM: No free fluid. No free air. No fluid collection. LYMPH NODES: No significant adenopathy. VASCULAR STRUCTURES: Small varices at the gastrohepatic ligament. URINARY BLADDER: No significant abnormality. REPRODUCTIVE ORGANS: Mild prostate calcification. ADDITIONAL FINDINGS: Small fat-containing umbilical hernia. SKELETAL SYSTEM: No significant abnormality. IMPRESSION: 1. Persistent large obstructing stone within the right ureter at L5 with relatively high-grade obstruction. Mild cortical atrophy. 2. Nonobstructing calyceal stones bilaterally. 3. Cirrhosis with portal hypertension including splenomegaly and varices 4. Enlarging left hepatic mass. 5. Small stone now lies within the cystic duct. The gallbladder is mildly distended. Signer Name: Jerson Diallo MD Signed: 12/20/2020 6:21 AM Workstation Name: [id number] Transcribed By: ES Dictated By: Jerson Diallo MD Electronically Authenticated By: Jerson Diallo MD Signed Date/Time: 12/20/20620 DD/ 1 - Medical Decision Making Labs/CT abdomen pelvis reviewed --patient does have elevation of his LFTs, After reviewing his past labs this appears to be chronic, no worse today. His blood sugar today is 160, no evidence of DKA; his UA is concerning for possible UTI, culture is pending; CBC shows normal white count and other chronic changes but nothing acute. His CT abdomen pelvis shows a persistent large obstructing stone within the right ureter at L5 with relatively high-grade obstruction. Mild cortical atrophy. Nonobstructing calyceal stones bilaterally. Cirrhosis with portal hypertension including splenomegaly and varices. Enlarging left hepatic mass. Small stones within the cystic duct. The gallbladder is mildly distended. Patient had similar CT findings when he was admitted here in August 2020 for asthma exacerbation. Patient admits that he does know about the kidney stone but never followed up with a urologist. Patient is currently resting comfortably in the bed. Does not appear to be in any acute pain distress. He has a nonsurgical abdominal exam at this time. He is not toxic or ill-appearing. [id number]: Discussed case with Dr. Melquiades Bernbae, she agrees that patient labs and CT findings are chronic. Given that patient does not have intractable pain, he does not have any active nausea or vomiting, is not toxic or ill-appearing and he is not septic; patient can be discharged home with instructions to follow-up with primary care doctor urology and oncology. He will be treated for possible UTI. Discussed lab findings/CT findings with patient. Discussed with him the importance of following up with the urologist, and oncologist and primary care doctors. Patient expressed understanding of instructions. Patient was stable at time of discharge. Critical care attestation.: If time is entered above; I have spent that time in minutes in the direct care of this critically ill patient, excluding procedure time. ED Disposition Clinical Impression: Abdominal pain, Hydronephrosis, History of liver cancer, Renal colic on right side, Kidney stone on right side, UTI (urinary tract infection) Disposition: TO HOME OR SELFCARE Is pt being admited?: No Does the pt Need Aspirin: No Condition: Stable Instructions: Renal Colic, [id number], Urinary Tract Infection, Adult, [id number], Hydronephrosis, Liver Cancer Additional Instructions: It is important that you stop drinking alcohol. It is important that you follow-up with the primary care doctor, the urologist, and the oncologist listed on your discharge instruction in the next 3 to 4 days. Take the antibiotics as prescribed. Take the pain medication and the nausea medication as prescribed. Return to the ER if your symptoms changes or worsens in any way. Prescriptions: cephALEXin [Keflex] 500 mg PO Q6HR #40 capsule Famotidine [Pepcid] 20 mg PO BID #30 tablet traMADoL [Ultram] 50 - 100 mg PO Q4HR PRN #15 tablet PRN Reason: Pain Ondansetron [Zofran Odt] 4 mg PO Q8HR #15 tab.rapdis Referrals: NIESHA CHUNG MD [Staff Physician] - 3-5 Days INDRA EVANS MD [Staff Physician] - 3-5 Days RHETT LUNA MD [Staff Physician] - 3-5 Days Forms: Work/School Release Form(ED) Time of Disposition: 08:13
[2020-12-20] MEDS ORDERED: MORPHINE 2 MG/1 ML INJ IV ONE (07:51)
== END 2020-12-20 09:00 | disposition home or self-care (01) ==
LOC: ED 04:21
DX: N39.0 Urinary tract infection, site not specified (principal); N13.30 Unspecified hydronephrosis; R10.13 Epigastric pain; Z85.05 Personal history of malignant neoplasm of liver; Z87.442 Personal history of urinary calculi; I10 Essential (primary) hypertension; I25.2 Old myocardial infarction; J45.909 Unspecified asthma, uncomplicated; Z79.2 Long term (current) use of antibiotics; Z79.899 Other long term (current) drug therapy
CPT/HCPCS: 36415; 74176; 80053; 81001; 83690; 85025; 96361; 96374; 96375; 96376; 99284; J1885; J2270; J2405; J7030

== ENCOUNTER 2021-12-02 08:23 | Observation (INO) | payer SELFPAY ==
[2021-12-02] MEDS ORDERED: SODIUM CHLORIDE 0.9% 1000 ML IV SOLN IV ONE (08:55)
[2021-12-02] MEDS ORDERED: FAMOTIDINE 20 MG/2 ML INJ IV ONE (08:56)
[2021-12-02] MEDS ORDERED: ONDANSETRON 4 MG/2 ML INJ IV ONE (08:56)
[2021-12-02] MEDS ORDERED: MORPHINE 4 MG/1 ML INJ IV ONE ×2 (08:56→12:28)
[2021-12-02] MEDS ORDERED: ACETAMINOPHEN 325 MG TAB PO ONE (08:57)
[2021-12-02] MEDS ORDERED: IPRATROPIUM/ALBUTEROL SULFATE 3 ML AMPUL.NEB IH ONE (08:58)
[2021-12-02] MEDS ORDERED: methylPREDNISolone Sod Succinate 125 MG/2 ML INJ IV ONE (08:58)
[2021-12-02] MEDS ORDERED: MAGNESIUM SULFATE 2 GM/50 ML BAG IV ONE (08:59)
--- NOTE | 2021-12-02 09:02 | Emergency Department Report ---
ED Abdominal Pain HPI - General Chief Complaint: Abdominal Pain Stated Complaint: ABDOMINAL PAIN Time Seen by Provider: 12/02/21 08:42 Source: patient, EMS Mode of arrival: Stretcher Limitations: No Limitations - History of Present Illness Initial Comments: 61-year-old male with a past medical history of asthma, hypertension alcohol abuse, untreated liver cancer, liver cirrhosis and liver cancer presented to the ER last night via EMS with complaints of abdominal pain and fevers for the past 4 days. Patient apparently denies any history of diabetes previously documented. temperature 101 here upon ED arrival. Patient complains of constant epigastric pain worse with palpation and movement. He denies associated cough, nausea, vomiting, diarrhea, melena, hematochezia, dysuria, or previous abdominal surgeries. Patient continues to drink with last beer intake 3 days ago. He states he has a history of mild tremors but denies previous history of alcohol withdrawal seizures. Patient has been unable to follow-up regarding his cancer due to lack of insurance. He is unvaccinated for COVID - Related Data Home Medications Medication Instructions Recorded Confirmed Last Taken Multivitamin [Multiple Vitamins] 1 each PO DAILY 08/11/18 08/20/20 Unknown Previous Rx's Medication Instructions Recorded Last Taken Type ALBUTEROL NEB's [Proventil 0.083% 2.5 mg IH Q4HRT PRN #60 nebu 08/21/20 Unknown Rx NEBS] Albuterol Mdi (or & Nicu Only) 2 puff IH QID PRN #8.5 gram 08/21/20 Unknown Rx [ProAir HFA Inhaler] Azithromycin [Zithromax Z-MIRIAN] 0 mg PO DAILY #1 pack 08/21/20 Unknown Rx Budesonide [Pulmicort Respules] 0.5 mg IH Q12HRT #60 nebu 08/21/20 Unknown Rx Nebulizer [Aeroneb Go Nebulizer] 1 each MC BID #1 each 08/21/20 Unknown Rx Prednisone [predniSONE 10 mg 10 mg PO .TAPER #1 tab.ds.pk 08/21/20 Unknown Rx (6-Day Pack, 21 Tabs)] amLODIPine 10 mg PO DAILY #30 tab 08/21/20 Unknown Rx Famotidine [Pepcid] 20 mg PO BID #30 tablet 12/20/20 Unknown Rx Ondansetron [Zofran Odt] 4 mg PO Q8HR #15 tab.rapdis 12/20/20 Unknown Rx cephALEXin [Keflex] 500 mg PO Q6HR #40 capsule 12/20/20 Unknown Rx traMADoL [Ultram] 50 - 100 mg PO Q4HR PRN #15 tablet 12/20/20 Unknown Rx Allergies Allergy/AdvReac Type Severity Reaction Status Date / Time No Known Allergies Allergy Verified 12/02/21 08:34 ED Review of Systems ROS: Stated complaint: ABDOMINAL PAIN Other details as noted in HPI Comment: All other systems reviewed and negative ED Past Medical Hx - Past Medical History Hx Hypertension: Yes Hx Heart Attack/AMI: Yes Hx Congestive Heart Failure: No Hx Diabetes: No Hx Deep Vein Thrombosis: No Hx Kidney Stones: Yes Hx Asthma: Yes Hx COPD: No - Surgical History Hx Coronary Stent: No Hx Pacemaker: No Hx Internal Defibrillator: No - Social History Smoking Status: Never Smoker Substance Use Type: Alcohol - Medications Home Medications: Home Medications Medication Instructions Recorded Confirmed Last Taken Type Multivitamin [Multiple Vitamins] 1 each PO DAILY 08/11/18 08/20/20 Unknown History ALBUTEROL NEB's [Proventil 0.083% 2.5 mg IH Q4HRT PRN #60 nebu 08/21/20 Unknown Rx NEBS] Albuterol Mdi (or & Nicu Only) 2 puff IH QID PRN #8.5 gram 08/21/20 Unknown Rx [ProAir HFA Inhaler] Azithromycin [Zithromax Z-MIRIAN] 0 mg PO DAILY #1 pack 08/21/20 Unknown Rx Budesonide [Pulmicort Respules] 0.5 mg IH Q12HRT #60 nebu 08/21/20 Unknown Rx Nebulizer [Aeroneb Go Nebulizer] 1 each MC BID #1 each 08/21/20 Unknown Rx Prednisone [predniSONE 10 mg 10 mg PO .TAPER #1 tab.ds.pk 08/21/20 Unknown Rx (6-Day Pack, 21 Tabs)] amLODIPine 10 mg PO DAILY #30 tab 08/21/20 Unknown Rx Famotidine [Pepcid] 20 mg PO BID #30 tablet 12/20/20 Unknown Rx Ondansetron [Zofran Odt] 4 mg PO Q8HR #15 tab.rapdis 12/20/20 Unknown Rx cephALEXin [Keflex] 500 mg PO Q6HR #40 capsule 12/20/20 Unknown Rx traMADoL [Ultram] 50 - 100 mg PO Q4HR PRN #15 tablet 12/20/20 Unknown Rx ED Physical Exam - General Limitations: No Limitations - Other Other exam information: General: No acute distress Head: Atraumatic Eyes: normal appearance ENT: Moist mucous membranes Neck: Normal appearance, no midline tenderness Chest: Clear to auscultation bilaterally CV: Regular rate and rhythm Abdomen: Soft, normal bowel sounds, epigastric tenderness, no rebound or guardin Back: Normal inspection Extremity: Normal inspection, full range of motion Neuro: Alert O x 3, no facial asymmetry, speech clear, no gross motor sensory deficit. No tremor Psych: Appropriate behavior Skin: No rash ED Course Vital Signs 12/02/21 12/02/21 12/02/21 08:32 09:05 09:17 Temperature 101 F H Pulse Rate 92 H Pulse Rate [ 88 Anterior Bilateral Throughout] Respiratory 20 Rate Respiratory 18 Rate [Anterior Bilateral Throughout] Blood Pressure Blood Pressure 150/76 [Left] O2 Sat by Pulse 98 Oximetry 12/02/21 12/02/21 12/02/21 12:08 12:09 12:55 Temperature 98.9 F 98.9 F Pulse Rate 87 74 Pulse Rate [ Anterior Bilateral Throughout] Respiratory 17 17 18 Rate Respiratory Rate [Anterior Bilateral Throughout] Blood Pressure 104/65 Blood Pressure 106/57 [Left] O2 Sat by Pulse 100 99 Oximetry ED Medical Decision Making - Lab Data Result diagrams: 12/02/21 11:11 12/02/21 09:03 - EKG Data -: EKG Interpreted by De EKG shows normal: sinus rhythm, intervals (QTC 423), QRS complexes (QRS duration 106), ST-T waves (No STEMI) Rate: normal (86) - Radiology Data Radiology results: report reviewed CHEST 1 VIEW INDICATION: fever. COMPARISON: 08/21/2020 FINDINGS: Support devices: None. Heart: Within normal limits. Lungs/Pleura: No acute air space or interstitial disease. No pleural abno rmality or pneumothorax is appreciated. Additional findings: None. IMPRESSION: No acute findings. CT ABDOMEN AND PELVIS WITH CONTRAST INDICATION / CLINICAL INFORMATION: epigastric pain, liver ca, fever OMNI 300 100 ML. TECHNIQUE: Axial CT images were obtained through the abdomen and pelvis after 100 cc of Omnipaque 300 IV contrast. Sagittal and coronal reformatted images. All CT scans at this location are performed using CT dose reduction for ALARA by means of automated exposure control. COMPARISON: CT abdomen pelvis without contrast dated 12/20/2020 FINDINGS: LOWER CHEST: No significant abnormality. LIVER: Cirrhotic configuration of the liver is again seen. Large mass in the anterior left hepatic lobe has increased from 6.6 x 6.5 cm to 8.9 x 8.2 cm in axial plane. There appears to be increased central necrosis since the previous exam. No internal gas is appreciated. There are 3 additional smaller enhancing liver lesions which were not clearly appreciated on the previous noncontrast exam. A 1.6 cm enhancing lesion is identified in the lateral left hepatic lobe. There are 2 enhancing lesions near the dome of the right hepatic lobe measuring 2.6 cm and 1.5 cm. It is unclear if these lesions were present on the previous noncontrast exam. GALLBLADDER: Tiny gallstones are unchanged. No wall thickening or pericholecystic fluid. BILE DUCTS: No significant abnormality. PANCREAS: No significant abnormality. SPLEEN: Stable splenomegaly measuring 15.9 cm. ADRENALS: No significant abnormality. RIGHT KIDNEY and URETER: 1.7 cm obstructing stone in the mid right ureter is again seen with moderate to severe upstream right hydronephrosis. Chronic cortical thinning is present in the right kidney. No signs of infection or mass. LEFT KIDNEY and URETER: Stable punctate stones near the inferior pole. The left kidney and collecting system are otherwise unremarkable. STOMACH and SMALL BOWEL: No significant abnormality. COLON: No significant abnormality. APPENDIX: Not clearly identified. PERITONEUM: No free fluid. No free air. No fluid collection. LYMPH NODES: No significant adenopathy. AORTA and ARTERIES: No significant abnormality. IVC and VEINS: Patent. Moderate to severe splenic vein varicosities are noted and unchanged. URINARY BLADDER: No significant abnormality. REPRODUCTIVE ORGANS: No significant abnormality. ADDITIONAL FINDINGS: None. SKELETAL SYSTEM: Stable mild thoracolumbar spondylosis. No suspicious bony lesion is detected. IMPRESSION: Cirrhosis and splenomegaly. Large left hepatic lobe mass appears slightly increased in size with increased central necrosis. No obvious signs of internal infection on CT. 3 additional enhancing liver lesions are identified as described consistent with metastatic lesions. Obstructing right ureteral stone with chronic cortical thinning in the right kidney, not significantly changed. No evidence for pyelonephritis. Stable punctate left renal stones. No acute inflammatory process is appreciated in the abdomen or pelvis. - Medical Decision Making 51-year-old male presents to the hospital epigastric pain and fever. Epigastric pain spi likely secondary to hepatic mass with increasing central necrosis. Fevers likely secondary to UTI. Patient has a chronic obstructing right ureteral stone with chronic hydronephrosis and chronic cortical thinning without CT findings of pyelonephritis. Patient will be treated for sepsis without signs of septic shock. IV Rocephin ordered in addition to 30 mill per KG bolus of normal saline. Patient required multiple doses of morphine for pain control. Hospitalist to admit. Case discussed with Dr. KALE tabares ordered covid pending culutres pending lactic acid trending downward Critical Care Time: No Critical care attestation.: If time is entered above; I have spent that time in minutes in the direct care of this critically ill patient, excluding procedure time. ED Disposition Clinical Impression: UTI (urinary tract infection), Sepsis, Abdominal pain, Liver mass, Cirrhosis, Splenomegaly, Alcohol abuse, Metastasis, Right ureteral calculus Disposition: ADMITTED INPATIENT Is pt being admited?: Yes Condition: Stable Referrals: PRIMARY CARE, [Primary Care Provider] - 3-5 Days Time of Disposition: 13:07 (Dr Cheung/hospitalist)
--- NOTE | 2021-12-02 09:28 | XRay Report ---
CHEST 1 VIEW INDICATION: fever. COMPARISON: 08/21/2020 FINDINGS: Support devices: None. Heart: Within normal limits. Lungs/Pleura: No acute air space or interstitial disease. No pleural abnormality or pneumothorax is a ppreciated. Additional findings: None. IMPRESSION: No acute findings. Signer Name: Francis Evans Jr, MD Signed: 12/02/2021 9:23 AM Workstation Name: [id number]
[2021-12-02 09:40] LABS: Alanine Aminotransferase 39 units/L (7-56); Albumin 2.6 g/dL (3.9-5); BUN/Creatinine Ratio 16; Bilirubin,Direct 1.5 mg/dL (0-0.2); Blood Urea Nitrogen 14 mg/dL (9-20); Calcium 8.1 mg/dL (8.4-10.2); Hemolysis Index 3
[2021-12-02 09:44] LABS: Alanine Aminotransferase 40 units/L (7-56); Albumin 2.6 g/dL (3.9-5); BUN/Creatinine Ratio 16; Blood Urea Nitrogen 14 mg/dL (9-20); Hemolysis Index 6
[2021-12-02 11:26] LABS: Basophils % (Auto) 0.4 % (0.0-1.8); Eosinophils % (Auto) 0.4 % (0.0-4.3); Hematocrit 32.5 % (35.5-45.6); Hemoglobin 11.1 gm/dl (11.8-15.2); Lymphocytes # (Auto) 0.8 K/mm3 (1.2-5.4); Lymphocytes % (Auto) 12.1 % (13.4-35.0); Mean Corpuscular HGB Conc 34 % (32-34); Mean Corpuscular Volume 99 fl (84-94); Monocytes # (Auto) 0.4 K/mm3 (0.0-0.8); Monocytes % (Auto) 6.5 % (0.0-7.3); Platelet Count 134 K/mm3 (140-440); Red Cell Distribution Width 13.4 % (13.2-15.2)
--- NOTE | 2021-12-02 11:57 | Cat Scan Report ---
CT ABDOMEN AND PELVIS WITH CONTRAST INDICATION / CLINICAL INFORMATION: epigastric pain, liver ca, fever OMNI 300 100 ML. TECHNIQUE: Axial CT images were obtained through the abdomen and pelvis after 100 cc of Omnipaque 300 IV contras t. Sagittal and coronal reformatted images. All CT scans at this location are performed using CT dose reduction for ALARA by means of automated exposure control. COMPARISON: CT abdomen pelvis without contrast dated 12/20/2020 FINDINGS: LOWER CHEST: No significant abnormality. LIVER: Cirrhotic configuration of the liver is again seen. Large mass in the anterior left hepatic lo be has increased from 6.6 x 6.5 cm to 8.9 x 8.2 cm in axial plane. There appears to be increased cent ral necrosis since the previous exam. No internal gas is appreciated. There are 3 additional smaller enhancing liver lesions which were not clearly appreciated on the previous noncontrast exam. A 1.6 cm enhancing lesion is identified in the lateral left hepatic lobe. There are 2 enhancing lesions near the dome of the right hepatic lobe measuring 2.6 cm and 1.5 cm. It is unclear if these lesions were p resent on the previous noncontrast exam. GALLBLADDER: Tiny gallstones are unchanged. No wall thickening or pericholecystic fluid. BILE DUCTS: No significant abnormality. PANCREAS: No significant abnormality. SPLEEN: Stable splenomegaly measuring 15.9 cm. ADRENALS: No significant abnormality. RIGHT KIDNEY and URETER: 1.7 cm obstructing stone in the mid right ureter is again seen with moderate to severe upstream right hydronephrosis. Chronic cortical thinning is present in the right kidney. N o signs of infection or mass. LEFT KIDNEY and URETER: Stable punctate stones near the inferior pole. The left kidney and collecting system are otherwise unremarkable. STOMACH and SMALL BOWEL: No significant abnormality. COLON: No significant abnormality. APPENDIX: Not clearly identified. PERITONEUM: No free fluid. No free air. No fluid collection. LYMPH NODES: No significant adenopathy. AORTA and ARTERIES: No significant abnormality. IVC and VEINS: Patent. Moderate to severe splenic vein varicosities are noted and unchanged. URINARY BLADDER: No significant abnormality. REPRODUCTIVE ORGANS: No significant abnormality. ADDITIONAL FINDINGS: None. SKELETAL SYSTEM: Stable mild thoracolumbar spondylosis. No suspicious bony lesion is detected. IMPRESSION: Cirrhosis and splenomegaly. Large left hepatic lobe mass appears slightly increased in size with inc reased central necrosis. No obvious signs of internal infection on CT. 3 additional enhancing liver l esions are identified as described consistent with metastatic lesions. Obstructing right ureteral stone with chronic cortical thinning in the right kidney, not significantl y changed. No evidence for pyelonephritis. Stable punctate left renal stones. No acute inflammatory process is appreciated in the abdomen or pelvis. Signer Name: Francis Evans Jr, MD Signed: 12/02/2021 11:52 AM Workstation Name: [id number]
[2021-12-02 12:55] LABS: Bacteria,Urine 2+ /HPF (Negative); Bilirubin,Urine NEG (Negative); Blood,Urine SM (Negative); Color,Urine Amber (Yellow); Mucus,Urine 3+ /HPF
[2021-12-02 12:58] LABS: WBC,Urine > 182.0 /HPF (0.0-6.0)
[2021-12-02] MEDS ORDERED: cefTRIAXone/NS 1 GM/50 ML 1 GM/50 ML BAG IV ONE (12:59)
[2021-12-02] MEDS ORDERED: ONDANSETRON 4 MG/2 ML INJ IV PRN (13:07)
[2021-12-02] MEDS ORDERED: ACETAMINOPHEN 325 MG TAB PO PRN (13:07)
[2021-12-02] MEDS ORDERED: LORazepam 2 MG/ML VIAL IV PRN (13:10)
[2021-12-02] MEDS ORDERED: LORazepam 2 MG TAB PO PRN ×2 (13:10)
[2021-12-02] MEDS: MORPHINE 2 MG/1 ML INJ IV PRN (17:25)
[2021-12-02] MEDS ORDERED: ALBUTEROL 8.5 GM MDI INHALATION IH PRN (19:36)
--- NOTE | 2021-12-02 19:38 | History and Physical Report ---
History of Present Illness Date of examination: 12/02/21 Date of admission: 12/02/21 13:07 Chief complaint: Fever for 4 days History of present illness: 61-year-old Sierra Leonean-speaking male with history of hypertension, asthma/COPD, EtOH dependence, hepatic mass which is progressively increasing in size comes in for fever for the past 4 days. Pain of the right epigastric region and right upper quadrant. Patient had CAT scans of the liver and this hospital previously which showed hepatic mass which is becoming larger but patient does not follow- up with any oncologist. Patient is apparently undocumented. Fever and chills for 4 days. Dysuria present. No cough. No diaphoresis. Patient continues to drink beer on a regular basis. Having mild tremors. No history of alcohol withdrawal seizures. Patient is also on vaccinated for COVID. 61-year-old male with a past medical history of asthma, hypertension alcohol abuse, untreated liver cancer, liver cirrhosis and liver cancer presented to the - Past Medical History --Hypertension: Yes --Heart Attack/AMI: Yes --Kidney Stones: Yes --Asthma: Yes - Surgical History -- Coronary Stent: No - Family history --Htn - Social History --Smoking Status: Never Smoker --Substance Use Type: Alcohol - Medications --Home Medications: Home Medications Medication Instructions Recorded Confirmed Last Taken Type Multivitamin [Multiple Vitamins] 1 each PO DAILY 08/11/18 08/20/20 Unknown History ALBUTEROL NEB's [Proventil 0.083% 2.5 mg IH Q4HRT PRN #60 nebu 08/21/20 Unknown Rx NEBS] Albuterol Mdi (or & Nicu Only) 2 puff IH QID PRN #8.5 gram 08/21/20 Unknown Rx [ProAir HFA Inhaler] Azithromycin [Zithromax Z-MIRIAN] 0 mg PO DAILY #1 pack 08/21/20 Unknown Rx Budesonide [Pulmicort Respules] 0.5 mg IH Q12HRT #60 nebu 08/21/20 Unknown Rx Nebulizer [Aeroneb Go Nebulizer] 1 each MC BID #1 each 08/21/20 Unknown Rx Prednisone [predniSONE 10 mg 10 mg PO .TAPER #1 tab.ds.pk 08/21/20 Unknown Rx (6-Day Pack, 21 Tabs)] amLODIPine 10 mg PO DAILY #30 tab 08/21/20 Unknown Rx Famotidine [Pepcid] 20 mg PO BID #30 tablet 12/20/20 Unknown Rx Ondansetron [Zofran Odt] 4 mg PO Q8HR #15 tab.rapdis 12/20/20 Unknown Rx cephALEXin [Keflex] 500 mg PO Q6HR #40 capsule 12/20/20 Unknown Rx traMADoL [Ultram] 50 - 100 mg PO Q4HR PRN #15 tablet 12/20/20 Unknown Rx Review of Systems ROS: Stated complaint: ABDOMINAL PAIN Other details as noted in HPI Comment: All other systems reviewed and negative Medications and Allergies Allergies Allergy/AdvReac Type Severity Reaction Status Date / Time No Known Allergies Allergy Verified 12/02/21 08:34 Home Medications Medication Instructions Recorded Confirmed Last Taken Type Multivitamin [Multiple Vitamins] 1 each PO DAILY 08/11/18 08/20/20 Unknown History ALBUTEROL NEB's [Proventil 0.083% 2.5 mg IH Q4HRT PRN #60 nebu 08/21/20 Unknown Rx NEBS] Albuterol Mdi (or & Nicu Only) 2 puff IH QID PRN #8.5 gram 08/21/20 Unknown Rx [ProAir HFA Inhaler] Azithromycin [Zithromax Z-MIRIAN] 0 mg PO DAILY #1 pack 08/21/20 Unknown Rx Budesonide [Pulmicort Respules] 0.5 mg IH Q12HRT #60 nebu 08/21/20 Unknown Rx Nebulizer [Aeroneb Go Nebulizer] 1 each MC BID #1 each 08/21/20 Unknown Rx Prednisone [predniSONE 10 mg 10 mg PO .TAPER #1 tab.ds.pk 08/21/20 Unknown Rx (6-Day Pack, 21 Tabs)] amLODIPine 10 mg PO DAILY #30 tab 08/21/20 Unknown Rx Famotidine [Pepcid] 20 mg PO BID #30 tablet 12/20/20 Unknown Rx Ondansetron [Zofran Odt] 4 mg PO Q8HR #15 tab.rapdis 12/20/20 Unknown Rx cephALEXin [Keflex] 500 mg PO Q6HR #40 capsule 12/20/20 Unknown Rx traMADoL [Ultram] 50 - 100 mg PO Q4HR PRN #15 tablet 12/20/20 Unknown Rx Active Meds: Active Medications Acetaminophen (Acetaminophen 325 Mg Tab) 650 mg PO Q4H PRN PRN Reason: Pain MILD(1-3)/Fever >100.5/MONCADA Last Admin: 12/02/21 14:00 Dose: 650 mg Lorazepam (Lorazepam 2 Mg Tab) 2 mg PO Q1H PRN PRN Reason: CIWA-Ar 8-15 Lorazepam (Lorazepam 2 Mg Tab) 4 mg PO Q1H PRN PRN Reason: CIWA-Ar 16-25 Lorazepam (Lorazepam 2 Mg/Ml Vial) 4 mg IV Q15MIN PRN PRN Reason: CIWA-Ar >25 Morphine Sulfate (Morphine 2 Mg/1 Ml Inj) 2 mg IV Q4H PRN PRN Reason: Pain, Moderate (4-6) Last Admin: 12/02/21 17:25 Dose: 2 mg Ondansetron HCl (Ondansetron 4 Mg/2 Ml Inj) 4 mg IV Q8H PRN PRN Reason: Nausea And Vomiting Sodium Chloride (Sodium Chloride 0.9% 10 Ml Flush Syringe) 10 ml IV BID PRAVEENA Sodium Chloride (Sodium Chloride 0.9% 10 Ml Flush Syringe) 10 ml IV PRN PRN PRN Reason: LINE FLUSH Exam - Constitutional Vitals: Temp Pulse Resp BP Pulse Ox 97.3 F L 66 22 136/78 95 12/02/21 18:30 12/02/21 18:30 12/02/21 18:30 12/02/21 18:30 12/02/21 18:30 General appearance: Present: no acute distress, well-nourished - EENT Eyes: Present: PERRL ENT: hearing intact, clear oral mucosa - Neck Neck: Present: supple, normal ROM - Respiratory Respiratory effort: normal Respiratory: bilateral: CTA - Cardiovascular Heart rate: 78 Rhythm: regular Heart Sounds: Present: S1 & S2. Absent: rub, click - Extremities Extremities: no ischemia, pulses intact, pulses symmetrical, No edema Peripheral Pulses: within normal limits - Abdominal General gastrointestinal: Present: soft, non-tender, non-distended, normal bowel sounds Male genitourinary: Present: normal - Rectal Rectal Exam: deferred - Integumentary Integumentary: Present: clear, warm, dry - Musculoskeletal Musculoskeletal: gait normal, strength equal bilaterally - Psychiatric Psychiatric: appropriate mood/affect, intact judgment & insight - Neurologic Neurologic: CNII-XII intact, moves all extremities - Allied Health Allied health notes reviewed: nursing, case management HEART Score - HEART Score Troponin: Troponin T < 0.010 ng/mL (0.00-0.029) 12/02/21 09:03 Results - Labs CBC & Chem 7: 12/02/21 11:11 12/02/21 09:03 Labs: Laboratory Last Values WBC 6.7 K/mm3 (4.5-11.0) 12/02/21 11:11 RBC 3.30 M/mm3 (3.65-5.03) L 12/02/21 11:11 Hgb 11.1 gm/dl (11.8-15.2) L 12/02/21 11:11 Hct 32.5 % (35.5-45.6) L 12/02/21 11:11 MCV 99 fl (84-94) H 12/02/21 11:11 MCH 34 pg (28-32) H 12/02/21 11:11 MCHC 34 % (32-34) 12/02/21 11:11 RDW 13.4 % (13.2-15.2) 12/02/21 11:11 Plt Count 134 K/mm3 (140-440) L 12/02/21 11:11 Lymph % (Auto) 12.1 % (13.4-35.0) L 12/02/21 11:11 [place] % (Auto) 6.5 % (0.0-7.3) 12/02/21 11:11 Eos % (Auto) 0.4 % (0.0-4.3) 12/02/21 11:11 Baso % (Auto) 0.4 % (0.0-1.8) 12/02/21 11:11 Lymph # (Auto) 0.8 K/mm3 (1.2-5.4) L 12/02/21 11:11 [place] # (Auto) 0.4 K/mm3 (0.0-0.8) 12/02/21 11:11 Eos # (Auto) 0.0 K/mm3 (0.0-0.4) 12/02/21 11:11 Baso # (Auto) 0.0 K/mm3 (0.0-0.1) 12/02/21 11:11 Seg Neutrophils % 80.6 % (40.0-70.0) H 12/02/21 11:11 Seg Neutrophils # 5.4 K/mm3 (1.8-7.7) 12/02/21 11:11 Sodium 135 mmol/L (137-145) L 12/02/21 09:03 Sodium 136 mmol/L (137-145) L 12/02/21 09:03 Potassium 3.8 mmol/L (3.6-5.0) 12/02/21 09:03 Potassium 3.9 mmol/L (3.6-5.0) 12/02/21 09:03 Chloride 104.9 mmol/L (98-107) 12/02/21 09:03 Chloride 105.5 mmol/L (98-107) 12/02/21 09:03 Carbon Dioxide 22 mmol/L (22-30) 12/02/21 09:03 Carbon Dioxide 22 mmol/L (22-30) 12/02/21 09:03 Anion Gap 12 mmol/L 12/02/21 09:03 Anion Gap 12 mmol/L 12/02/21 09:03 BUN 14 mg/dL (9-20) 12/02/21 09:03 BUN 14 mg/dL (9-20) 12/02/21 09:03 Creatinine 0.9 mg/dL (0.8-1.3) 12/02/21 09:03 Creatinine 0.9 mg/dL (0.8-1.3) 12/02/21 09:03 Estimated GFR > 60 ml/min 12/02/21 09:03 Estimated GFR > 60 ml/min 12/02/21 09:03 BUN/Creatinine Ratio 16 % 12/02/21 09:03 BUN/Creatinine Ratio 16 % 12/02/21 09:03 Glucose 122 mg/dL (75-100) H 12/02/21 09:03 Glucose 123 mg/dL (75-100) H 12/02/21 09:03 Lactic Acid 1.90 mmol/L (0.7-2.0) 12/02/21 11:11 Calcium 8.0 mg/dL (8.4-10.2) L 12/02/21 09:03 Calcium 8.1 mg/dL (8.4-10.2) L 12/02/21 09:03 Magnesium 2.00 mg/dL (1.7-2.3) 12/02/21 09:03 Total Bilirubin 2.40 mg/dL (0.1-1.2) H 12/02/21 09:03 Total Bilirubin 2.50 mg/dL (0.1-1.2) H 12/02/21 09:03 Direct Bilirubin 1.5 mg/dL (0-0.2) H 12/02/21 09:03 Indirect Bilirubin 0.9 mg/dL 12/02/21 09:03 AST 43 units/L (5-40) H 12/02/21 09:03 AST 43 units/L (5-40) H 12/02/21 09:03 ALT 39 units/L (7-56) 12/02/21 09:03 ALT 40 units/L (7-56) 12/02/21 09:03 Alkaline Phosphatase 109 units/L (35-129) 12/02/21 09:03 Alkaline Phosphatase 110 units/L (35-129) 12/02/21 09:03 Ammonia 55.0 umol/L (25-60) 12/02/21 09:03 Troponin T < 0.010 ng/mL (0.00-0.029) 12/02/21 09:03 Total Protein 6.7 g/dL (6.3-8.2) 12/02/21 09:03 Total Protein 6.8 g/dL (6.3-8.2) 12/02/21 09:03 Albumin 2.6 g/dL (3.9-5) L 12/02/21 09:03 Albumin 2.6 g/dL (3.9-5) L 12/02/21 09:03 Albumin/Globulin Ratio 0.6 % 12/02/21 09:03 Albumin/Globulin Ratio 0.6 % 12/02/21 09:03 Lipase 23 units/L (13-60) 12/02/21 09:03 Urine Color Celia (Yellow) 12/02/21 12:32 Urine Turbidity Cloudy (Clear) 12/02/21 12:32 Urine pH 5.0 (5.0-7.0) 12/02/21 12:32 Ur Specific [place] 1.041 (1.003-1.030) H 12/02/21 12:32 Urine Protein 30 mg/dl mg/dL (Negative) 12/02/21 12:32 Urine Glucose (UA) Neg mg/dL (Negative) 12/02/21 12:32 Urine Ketones Neg mg/dL (Negative) 12/02/21 12:32 Urine Blood Sm (Negative) 12/02/21 12:32 Urine Nitrite Pos (Negative) 12/02/21 12:32 Urine Bilirubin Neg (Negative) 12/02/21 12:32 Urine Urobilinogen 4.0 mg/dL (<2.0) 12/02/21 12:32 Ur Leukocyte Esterase Lg (Negative) 12/02/21 12:32 Urine WBC (Auto) > 182.0 /HPF (0.0-6.0) H 12/02/21 12:32 Urine RBC (Auto) 34.0 /HPF (0.0-6.0) 12/02/21 12:32 U Epithel Cells (Auto) 4.0 /HPF (0-13.0) 12/02/21 12:32 Urine Bacteria (Auto) 2+ /HPF (Negative) 12/02/21 12:32 Urine Mucus 3+ /HPF 12/02/21 12:32 Urine Yeast (Budding) 1+ /HPF 12/02/21 12:32 Plasma/Serum Alcohol 0.08 % (0-0.07) H 12/02/21 09:03 Short CBC 12/02/21 Range/Units 11:11 WBC 6.7 (4.5-11.0) K/mm3 Hgb 11.1 L (11.8-15.2) gm/dl Hct 32.5 L (35.5-45.6) % Plt Count 134 L (140-440) K/mm3 BMP 12/02/21 12/02/21 09:03 09:03 Sodium 136 L 135 L Potassium 3.8 3.9 Chloride 105.5 104.9 Carbon Dioxide BUN 14 14 Creatinine 0.9 0.9 Glucose 122 H 123 H Calcium 8.0 L 8.1 L Cardiac Enzymes 12/02/21 Range/Units 09:03 Troponin T < 0.010 (0.00-0.029) ng/mL Liver Function 12/02/21 12/02/21 Range/Units 09:03 09:03 Total Bilirubin 2.50 H 2.40 H (0.1-1.2) mg/dL Direct Bilirubin 1.5 H (0-0.2) mg/dL AST 43 H 43 H (5-40) units/L ALT 40 39 (7-56) units/L Alkaline Phosphatase 109 110 (35-129) units/L Albumin 2.6 L 2.6 L (3.9-5) g/dL Urine 12/02/21 Range/Units 12:32 Urine Color Celia (Yellow) Urine pH 5.0 (5.0-7.0) Ur Specific [place] 1.041 H (1.003-1.030) Urine Protein 30 mg/dl (Negative) mg/dL Urine Glucose (UA) Neg (Negative) mg/dL Microbiology: Microbiology 12/02/21 09:33 Peripheral/Venous Blood Culture - Preliminary Culture in Progress 12/02/21 09:03 Peripheral/Venous Blood Culture - Preliminary Culture in Progress - Imaging and Cardiology EKG: report reviewed (Sinus rhythm ,no acute ST-T wave changes.) CT scan - abdomen: report reviewed Imaging and Cardiology: Chest x-ray No acute findings CT of the abdomen and pelvis Cirrhosis and splenomegaly Left hepatic lobe mass appears slightly increased in size with increased central necrosis compared to the previous CT scan. No obvious signs of dental infection on CAT scan. 3 additional enhancing liver lesions are identified as consistent with metastatic lesions. Obstructing right ureteral stone with chronic cortical thickening in the right kidney. Not significantly changed. No evidence for pyelonephritis. Stable punctate left renal stones. No acute inflammatory process is appreciated of the abdomen or pelvis. Assessment and Plan Advance Directives: Yes (Full code) VTE prophylaxis?: Chemical Plan of care discussed with patient/family: Yes - Patient Problems (1) SIRS (systemic inflammatory response syndrome) Current Visit: Yes Status: Acute Plan to address problem: Patient has been having fever for 4 days Inflammatory markers were not done including D-dimer CRP and LDH (2) UTI (urinary tract infection) Current Visit: Yes Status: Acute Qualifiers: Urinary tract infection type: acute cystitis Plan to address problem: Patient is urine WBCs more than 182 Initiated on IV Rocephin pending urine cultures and blood cultures (3) Right ureteral calculus Current Visit: Yes Status: Chronic Plan to address problem: Right ureteral calculus with right hydronephrosis on a chronic basis Will defer to primary team regarding urology consult (4) Hepatocellular carcinoma Current Visit: Yes Status: Acute Plan to address problem: Hepatocellular carcinoma with increasing liver size over the last few months and metastasis Patient does not follow with any oncologist Patient is undocumented and has no insurance Patient to follow-up with [facility] after discharge (5) EtOH dependence Current Visit: Yes Status: Chronic Plan to address problem: Patient counseled and started on CIWA protocol (6) Asthma with COPD Current Visit: Yes Status: Chronic Plan to address problem: Albuterol MDIs and duo nebs as needed (7) Hypertension Current Visit: Yes Status: Chronic Qualifiers: Hypertension type: primary hypertension Qualified Code(s): I10 - Essential (primary) hypertension Plan to address problem: Continue antihypertensives (8) GERD (gastroesophageal reflux disease) Current Visit: Yes Status: Chronic Qualifiers: Esophagitis presence: without esophagitis Qualified Code(s): K21.9 - Gastro-esophageal reflux disease without esophagitis Plan to address problem: On famotidine (9) Transaminitis Current Visit: Yes Status: Chronic Plan to address problem: Elevated total bilirubin and AST of 43 Secondary to hepatocellular carcinoma (10) Malnutrition Current Visit: Yes Status: Chronic Qualifiers: Protein-calorie malnutrition severity: moderate Plan to address problem: Dietary supplements initiated (11) DVT prophylaxis Current Visit: Yes Status: Acute Plan to address problem: On anticoagulation GI prophylaxis (12) Advance care planning Current Visit: Yes Status: Acute Plan to address problem: Disease education conducted, care plan discussed, diagnosis discussed, prognosis discussed. Patient is full code. Patient acknowledges understanding and agreement with care plan. +30 minutes. (13) Discharge planning issues Current Visit: Yes Status: Acute Plan to address problem: Urinary tract infection to be treated and patient to be discharged with follow- up with [facility] Will refer to software development specialist and hepatocellular carcinoma Will get the name and phone number and mention as event note later
[2021-12-02] MEDS ORDERED: ALBUTEROL 2.5 MG/3 ML NEBU IH PRN (20:18)
[2021-12-02] MEDS: amLODIPine 10 MG TAB PO SCH (20:37)
[2021-12-02] MEDS: cefTRIAXone/NS 2 GM/100 ML 2 GM/100 ML BAG IV SCH (20:38)
[2021-12-02] MEDS: traMADol 50 MG TAB PO PRN (20:40)
[2021-12-02] MEDS: FAMOTIDINE 20 MG TAB PO SCH (21:15)
[2021-12-03] MEDS: BUDESONIDE 0.5 MG/2 ML NEBU IH SCH ×3 (00:25→20:22)
[2021-12-03 05:42] VITALS: BP 130/75
--- NOTE | 2021-12-03 08:59 | Progress Note ---
Assessment and Plan Assessment and plan: 61-year-old Nepali-speaking male with history of hypertension, asthma/COPD, EtOH dependence, hepatic mass which is progressively increasing in size comes in for fever for the past 4 days. Pain of the right epigastric region and right upper quadrant. Patient had CAT scans of the liver and this hospital previously which showed hepatic mass which is becoming larger but patient does not follow- up with any oncologist. Patient is apparently undocumented. Patient continues to drink beer on a regular basis. Having mild tremors. No history of alcohol withdrawal seizures. Patient is also on vaccinated for COVID. Sepsis. Patient meets criteria given the tachycardia, fever and diagnosis of UTI. UTI. Right obstructive ureteral calculus Hepatocellular carcinoma EtOH dependent Asthma/COPD Hypertension Transaminitis Protein calorie malnutrition 12/03/2021. CT scan of the abdomen pelvis reveals cirrhosis and splenomegaly. Left hepatic lobe mass appears slightly increased in size with increased central necrosis compared to the previous CT scan. 3 additional enhancing liver lesions are identified as consistent with metastatic lesions. Obstructing right ureteral stone with chronic cortical thickening in the right kidney. Urology consultation pending. Follow-up urine and blood cultures. Continue IV antibiotics. Continue CIWA protocol. Hepatocellular carcinoma with increasing size and metastasis. Patient does not follow with any oncologist. Patient is undocumented and has no insurance. Case management assistance History Interval history: No new issues overnight Hospitalist Physical - Constitutional Vitals: Temp Pulse Resp BP Pulse Ox 97.2 F L 60 18 130/75 95 12/03/21 05:39 12/03/21 05:39 12/03/21 05:39 12/03/21 05:39 12/03/21 05:39 General appearance: Present: no acute distress, well-nourished - EENT Eyes: Present: PERRL, EOM intact ENT: hearing intact, clear oral mucosa, dentition normal - Neck Neck: Present: supple, normal ROM - Respiratory Respiratory effort: normal Respiratory: bilateral: CTA - Cardiovascular Rhythm: regular Heart Sounds: Present: S1 & S2. Absent: gallop, rub - Extremities Extremities: no ischemia, No edema, Full ROM - Abdominal General gastrointestinal: soft, non-tender, non-distended, normal bowel sounds - Integumentary Integumentary: Present: clear, warm, dry - Neurologic Neurologic: CNII-XII intact, moves all extremities HEART Score - HEART Score Troponin: Troponin T < 0.010 ng/mL (0.00-0.029) 12/02/21 09:03 Results - Labs CBC & Chem 7: 12/02/21 11:11 12/02/21 09:03 Labs: Laboratory Last Values WBC 6.7 K/mm3 (4.5-11.0) 12/02/21 11:11 RBC 3.30 M/mm3 (3.65-5.03) L 12/02/21 11:11 Hgb 11.1 gm/dl (11.8-15.2) L 12/02/21 11:11 Hct 32.5 % (35.5-45.6) L 12/02/21 11:11 MCV 99 fl (84-94) H 12/02/21 11:11 MCH 34 pg (28-32) H 12/02/21 11:11 MCHC 34 % (32-34) 12/02/21 11:11 RDW 13.4 % (13.2-15.2) 12/02/21 11:11 Plt Count 134 K/mm3 (140-440) L 12/02/21 11:11 Lymph % (Auto) 12.1 % (13.4-35.0) L 12/02/21 11:11 [place] % (Auto) 6.5 % (0.0-7.3) 12/02/21 11:11 Eos % (Auto) 0.4 % (0.0-4.3) 12/02/21 11:11 Baso % (Auto) 0.4 % (0.0-1.8) 12/02/21 11:11 Lymph # (Auto) 0.8 K/mm3 (1.2-5.4) L 12/02/21 11:11 [place] # (Auto) 0.4 K/mm3 (0.0-0.8) 12/02/21 11:11 Eos # (Auto) 0.0 K/mm3 (0.0-0.4) 12/02/21 11:11 Baso # (Auto) 0.0 K/mm3 (0.0-0.1) 12/02/21 11:11 Seg Neutrophils % 80.6 % (40.0-70.0) H 12/02/21 11:11 Seg Neutrophils # 5.4 K/mm3 (1.8-7.7) 12/02/21 11:11 Sodium 135 mmol/L (137-145) L 12/02/21 09:03 Sodium 136 mmol/L (137-145) L 12/02/21 09:03 Potassium 3.8 mmol/L (3.6-5.0) 12/02/21 09:03 Potassium 3.9 mmol/L (3.6-5.0) 12/02/21 09:03 Chloride 104.9 mmol/L (98-107) 12/02/21 09:03 Chloride 105.5 mmol/L (98-107) 12/02/21 09:03 Carbon Dioxide 22 mmol/L (22-30) 12/02/21 09:03 Carbon Dioxide 22 mmol/L (22-30) 12/02/21 09:03 Anion Gap 12 mmol/L 12/02/21 09:03 Anion Gap 12 mmol/L 12/02/21 09:03 BUN 14 mg/dL (9-20) 12/02/21 09:03 BUN 14 mg/dL (9-20) 12/02/21 09:03 Creatinine 0.9 mg/dL (0.8-1.3) 12/02/21 09:03 Creatinine 0.9 mg/dL (0.8-1.3) 12/02/21 09:03 Estimated GFR > 60 ml/min 12/02/21 09:03 Estimated GFR > 60 ml/min 12/02/21 09:03 BUN/Creatinine Ratio 16 % 12/02/21 09:03 BUN/Creatinine Ratio 16 % 12/02/21 09:03 Glucose 122 mg/dL (75-100) H 12/02/21 09:03 Glucose 123 mg/dL (75-100) H 12/02/21 09:03 Lactic Acid 1.90 mmol/L (0.7-2.0) 12/02/21 11:11 Calcium 8.0 mg/dL (8.4-10.2) L 12/02/21 09:03 Calcium 8.1 mg/dL (8.4-10.2) L 12/02/21 09:03 Magnesium 2.00 mg/dL (1.7-2.3) 12/02/21 09:03 Total Bilirubin 2.40 mg/dL (0.1-1.2) H 12/02/21 09:03 Total Bilirubin 2.50 mg/dL (0.1-1.2) H 12/02/21 09:03 Direct Bilirubin 1.5 mg/dL (0-0.2) H 12/02/21 09:03 Indirect Bilirubin 0.9 mg/dL 12/02/21 09:03 AST 43 units/L (5-40) H 12/02/21 09:03 AST 43 units/L (5-40) H 12/02/21 09:03 ALT 39 units/L (7-56) 12/02/21 09:03 ALT 40 units/L (7-56) 12/02/21 09:03 Alkaline Phosphatase 109 units/L (35-129) 12/02/21 09:03 Alkaline Phosphatase 110 units/L (35-129) 12/02/21 09:03 Ammonia 55.0 umol/L (25-60) 12/02/21 09:03 Troponin T < 0.010 ng/mL (0.00-0.029) 12/02/21 09:03 Total Protein 6.7 g/dL (6.3-8.2) 12/02/21 09:03 Total Protein 6.8 g/dL (6.3-8.2) 12/02/21 09:03 Albumin 2.6 g/dL (3.9-5) L 12/02/21 09:03 Albumin 2.6 g/dL (3.9-5) L 12/02/21 09:03 Albumin/Globulin Ratio 0.6 % 12/02/21 09:03 Albumin/Globulin Ratio 0.6 % 12/02/21 09:03 Lipase 23 units/L (13-60) 12/02/21 09:03 Urine Color Celia (Yellow) 12/02/21 12:32 Urine Turbidity Cloudy (Clear) 12/02/21 12:32 Urine pH 5.0 (5.0-7.0) 12/02/21 12:32 Ur Specific [place] 1.041 (1.003-1.030) H 12/02/21 12:32 Urine Protein 30 mg/dl mg/dL (Negative) 12/02/21 12:32 Urine Glucose (UA) Neg mg/dL (Negative) 12/02/21 12:32 Urine Ketones Neg mg/dL (Negative) 12/02/21 12:32 Urine Blood Sm (Negative) 12/02/21 12:32 Urine Nitrite Pos (Negative) 12/02/21 12:32 Urine Bilirubin Neg (Negative) 12/02/21 12:32 Urine Urobilinogen 4.0 mg/dL (<2.0) 12/02/21 12:32 Ur Leukocyte Esterase Lg (Negative) 12/02/21 12:32 Urine WBC (Auto) > 182.0 /HPF (0.0-6.0) H 12/02/21 12:32 Urine RBC (Auto) 34.0 /HPF (0.0-6.0) 12/02/21 12:32 U Epithel Cells (Auto) 4.0 /HPF (0-13.0) 12/02/21 12:32 Urine Bacteria (Auto) 2+ /HPF (Negative) 12/02/21 12:32 Urine Mucus 3+ /HPF 12/02/21 12:32 Urine Yeast (Budding) 1+ /HPF 12/02/21 12:32 Plasma/Serum Alcohol 0.08 % (0-0.07) H 12/02/21 09:03 Microbiology: Microbiology 12/02/21 09:33 Peripheral/Venous Blood Culture - Preliminary Culture in Progress 12/02/21 09:03 Peripheral/Venous Blood Culture - Preliminary Culture in Progress Garay/IV: Voiding Method Toilet Active Medications - Current Medications Current Medications: Generic Name Dose Route Start Last Admin Trade Name Freq PRN Reason Stop Dose Admin Acetaminophen 650 mg 12/02/21 13:07 12/02/21 14:00 Acetaminophen 325 Mg Tab PO 650 mg Q4H PRN Administration Pain MILD(1-3)/Fever >100.5/MONCADA Albuterol 2.5 mg 12/02/21 20:18 12/03/21 08:37 Albuterol 2.5 Mg/3 Ml Nebu IH 2.5 mg Q4H PRN Administration Shortness Of Breath Amlodipine Besylate 10 mg 12/02/21 20:00 12/02/21 20:37 Amlodipine 10 Mg Tab PO 10 mg DAILY PRAVEENA Administration Budesonide 0.5 mg 12/02/21 20:00 12/03/21 08:35 Budesonide 0.5 Mg/2 Ml Nebu IH 0.5 mg Q12HRT PRAVEENA Administration Famotidine 20 mg 12/02/21 22:00 12/02/21 21:15 Famotidine 20 Mg Tab PO 20 mg BID PRAVEENA Administration Ceftriaxone Sodium 2 gm in 100 mls @ 200 mls/hr 12/02/21 20:00 12/02/21 20:38 Rocephin/Ns 2 Gm/100 Ml IV 12/08/21 20:59 200 mls/hr Q24H PRAVEENA Administration Protocol Lorazepam 2 mg 12/02/21 13:10 Lorazepam 2 Mg Tab PO Q1H PRN CIWA-Ar 8-15 Lorazepam 4 mg 12/02/21 13:10 Lorazepam 2 Mg Tab PO Q1H PRN CIWA-Ar 16-25 Lorazepam 4 mg 12/02/21 13:10 Lorazepam 2 Mg/Ml Vial IV Q15MIN PRN CIWA-Ar >25 Morphine Sulfate 2 mg 12/02/21 13:08 12/02/21 17:25 Morphine 2 Mg/1 Ml Inj IV 2 mg Q4H PRN Administration Pain, Moderate (4-6) Multivitamins/Minerals 1 each 12/03/21 10:00 Multivitamins,Ther W-Minerals Tab PO QDAY PRAVEENA Ondansetron HCl 4 mg 12/02/21 13:07 Ondansetron 4 Mg/2 Ml Inj IV Q8H PRN Nausea And Vomiting Sodium Chloride 10 ml 12/02/21 22:00 12/02/21 21:16 Sodium Chloride 0.9% 10 Ml Flush Syringe IV 10 ml BID PRAVEENA Administration Sodium Chloride 10 ml 12/02/21 13:07 Sodium Chloride 0.9% 10 Ml Flush Syringe IV PRN PRN LINE FLUSH Tramadol HCl 50 mg 12/02/21 19:36 12/02/21 20:40 Tramadol 50 Mg Tab PO 50 mg Q4H PRN Administration PAIN
[2021-12-03] MEDS ORDERED: MULTIVITAMINS,THER W-MINERALS TAB PO SCH (10:00)
[2021-12-03] MEDS: MORPHINE 2 MG/1 ML INJ IV PRN (12:53)
[2021-12-03] MEDS: FAMOTIDINE 20 MG TAB PO SCH ×2 (12:56→21:00)
[2021-12-03] MEDS: amLODIPine 10 MG TAB PO SCH (12:56)
--- NOTE | 2021-12-03 17:56 | Electrocardiograph Report ---
[facility] Test Date: 2021-12-02 Test Time: 08:56:07 Pat Name: GLADYS RODRIGUES Department: Room: A352 Gender: M Housekeeper: TOSHA : 1960 Requested By: GARY LOPEZ Order Number: [id number] Reading MD: Sandra Ramirez Measurements Intervals [place] Rate: 86 P: 0 PA: 72 QRS: 13 QRSD: 106 T: 92 QT: 353 QTc: 423 Interpretive Statements Atrial fibrillation or multifocal atrial rhythm No previous ECG available for comparison Electronically Signed On 12-03-2021 17:56:29 EDT by Sandra Ramirez
[2021-12-03] MEDS: cefTRIAXone/NS 2 GM/100 ML 2 GM/100 ML BAG IV SCH (20:26)
[2021-12-03] MEDS: traMADol 50 MG TAB PO PRN (20:26)
--- NOTE | 2021-12-04 07:59 | Discharge Summary ---
Providers - Providers Date of Admission: 12/02/21 13:07 Date of discharge: 12/04/21 Attending physician: BROOKE COLIN 12/03/21 08:49 Consult to Physician [CONS] Routine Comment: Consulting Provider: SHAHEEN MENDEZ Physician Instructions: Reason For Exam: right obs ureteral stone Primary care physician: DESIGN AGENT Hospitalization Reason for admission: UTi, Abd pain Condition: Stable Hospital course: 61-year-old Mongolian-speaking male with history of hypertension, asthma/COPD, EtOH dependence, hepatic mass which is progressively increasing in size comes in for fever for the past 4 days. Pain of the right epigastric region and right upper quadrant. Patient had CAT scans of the liver and this hospital previously which showed hepatic mass which is becoming larger but patient does not follow- up with any oncologist. Patient is apparently undocumented. Patient continues to drink beer on a regular basis. Having mild tremors. No history of alcohol withdrawal seizures. Patient is also on vaccinated for COVID. The patient was admitted with diagnosis below: Sepsis. Patient meets criteria given the tachycardia, fever and diagnosis of UTI. UTI. Right obstructive ureteral calculus Hepatocellular carcinoma EtOH dependent Asthma/COPD Hypertension Transaminitis Protein calorie malnutrition 12/03/2021. CT scan of the abdomen pelvis reveals cirrhosis and splenomegaly. Left hepatic lobe mass appears slightly increased in size with increased central necrosis compared to the previous CT scan. 3 additional enhancing liver lesions are identified as consistent with metastatic lesions. Obstructing right ureteral stone with chronic cortical thickening in the right kidney. Urology consultation pending. Follow-up urine and blood cultures. Continue IV antibiotics. Continue CIWA protocol. Hepatocellular carcinoma with increasing size and metastasis. Patient does not follow with any oncologist. Patient is undocumented and has no insurance. Case management assistance 12/04/2021. Urology evaluated the patient and reported patient can follow-up as an outpatient. Dr. Newman reports no plans for inpatient intervention. The patient should follow-up at [place] or [place] for the hepatocellular carcinoma. Patient will be discharged with antibiotics for the UTI and is to follow-up with PCP as an outpatient. Urine cultures revealed gram-negative rods Disposition: HOME / SELF CARE / HOMELESS Final Discharge Diagnosis (Prints w/discharge instructions): Sepsis. Patient meets criteria given the tachycardia, fever and diagnosis of UTI. UTI. Right obstructive ureteral calculus. Hepatocellular carcinoma. EtOH dependent. Asthma/COPD. Hypertension. Transaminitis. Protein calorie malnutrition Core Measure Documentation - Palliative Care Palliative Care/ Comfort Measures: Not Applicable - Core Measures Any of the following diagnoses?: none Exam - Constitutional Vitals: Temp Pulse Resp BP Pulse Ox 97.2 F L 60 18 130/75 99 12/03/21 05:39 12/03/21 21:00 12/03/21 21:00 12/03/21 05:39 12/03/21 20:30 General appearance: Present: no acute distress, well-nourished - EENT Eyes: Present: PERRL ENT: hearing intact, clear oral mucosa - Neck Neck: Present: supple, normal ROM - Respiratory Respiratory effort: normal Respiratory: bilateral: CTA - Cardiovascular Heart Sounds: Present: S1 & S2. Absent: rub, click - Extremities Extremities: pulses symmetrical, No edema Peripheral Pulses: within normal limits - Abdominal General gastrointestinal: Present: soft, non-tender, non-distended, normal bowel sounds Male genitourinary: Present: normal - Integumentary Integumentary: Present: clear, warm, dry - Musculoskeletal Musculoskeletal: gait normal, strength equal bilaterally - Psychiatric Psychiatric: appropriate mood/affect, intact judgment & insight - Neurologic Neurologic: CNII-XII intact, moves all extremities Plan Activity: advance as tolerated Weight Bearing Status: Weight Bear as Tolerated Diet: regular Follow up with: PRIMARY CARE, [Primary Care Provider] - 3-5 Days Prescriptions: amLODIPine 10 mg PO DAILY #30 tab levoFLOXacin [Levaquin TAB] 500 mg PO QDAY #7 tablet Multivitamin [Multiple Vitamins] 1 each PO DAILY #30 tab Famotidine [Pepcid] 20 mg PO BID #30 tablet oxyCODONE /ACETAMINOPHEN [Percocet 5/325] 1 tab PO Q4HR #10 tab Budesonide [Pulmicort Respules] 0.5 mg IH Q12HRT #60 nebu
[2021-12-04] MEDS: BUDESONIDE 0.5 MG/2 ML NEBU IH SCH (11:42)
== END 2021-12-04 10:25 | disposition home or self-care (01) ==
LOC: ED 08:23 → 3A 13:07
PROVIDERS: ADMIT Internal Medicine; ATTEND Hospitalist
DX: A41.9 Sepsis, unspecified organism (principal); Z20.822 Contact with and (suspected) exposure to COVID-19; N39.0 Urinary tract infection, site not specified; R65.10 Systemic inflammatory response syndrome (SIRS) of non-infectious origin without acute organ dysfunction; N20.1 Calculus of ureter; K74.60 Unspecified cirrhosis of liver; J44.9 Chronic obstructive pulmonary disease, unspecified; J45.901 Unspecified asthma with (acute) exacerbation; R16.0 Hepatomegaly, not elsewhere classified; R16.1 Splenomegaly, not elsewhere classified; C22.0 Liver cell carcinoma; K21.9 Gastro-esophageal reflux disease without esophagitis; R74.01 Elevation of levels of liver transaminase levels; I10 Essential (primary) hypertension; F10.229 Alcohol dependence with intoxication, unspecified; Z79.899 Other long term (current) drug therapy; Z98.890 Other specified postprocedural states; Z87.442 Personal history of urinary calculi
CPT/HCPCS: 36415; 71045; 74177; 80053; 80076; 81001; 82140; 83690; 83735; 84484; 85025; 87040; 87076; 87086; 87186; 93005; 94640; 94644; 96365; 96366; 96367; 96375; 96376; 99285; G0378; J0696; J2270; J2405; J2930; J3475; J3490; J7030; Q9967; U0003; 80048; 80320; G0480